=== PATIENT | female | born 1975 | race Caucasian/White ===

== ENCOUNTER → 2017-07-25 | Outpatient (CLI) | payer OTHER ==
[~2017-07-25] MED LIST: ALPR1TAB3 PO; AZEL0.15 NAE; CETI10TA84 PO; CLR10 PO; COCO1OIL2 PO; DULO-24 PO; GABA-113 PO; HYDR-3763 PO; HYDR12.56 PO; LANS30CA12 PO; METH500T37 PO; ONDA4TAB46 PO; OXYC-57 PO; PREG1CAP28 PO; ROPI0.5T15 PO; SERT100T PO; SIMV10TA2 PO; SNQ/25 PO; VNTHFA/IN INH; XNX5 PO; ZNF4 PO; ZOLP10TA PO
--- NOTE | 2017-07-25 15:16 | DIAGNOSTIC IMAGING REPORT ---
CT SCAN OF THE CERVICAL SPINE CLINICAL HISTORY: Neck pain. Upper extremity numbness. COMPARISON STUDY: MRI of the cervical spine dated 06/16/2016. TECHNIQUE: CT scan of the cervical spine is performed from the skull base to the upper thoracic spine. Images are reviewed in the axial, sagittal, and coronal planes. IV contrast was not administered for this examination. A dose lowering technique was utilized adhering to the principles of ALARA. CT DOSE: 272.86 mGy.cm FINDINGS: Skeletal structures: The skeletal structures are well mineralized. There is no evidence of fracture or subluxation involving the cervical spine. Vertebral body height and alignment are maintained. There are postoperative changes from anterior fusion seen at C5-C6. There is near complete bony incorporation. The orthopedic hardware appears intact. There is straightening of the cervical lordosis. The odontoid process and lateral masses are intact. The atlantoaxial articulation is preserved noting mild productive degenerative change. The spinous processes appear intact. No significant neural foraminal stenosis is identified throughout the cervical spine. Intervertebral discs: There has been discectomy at C5-C6. Minimal disc space narrowing is seen at C6-C7. Central canal: Grossly patent. Soft tissues: The prevertebral and paraspinous soft tissues are within normal limits. Calvarium: The visualized calvarium at the skull base appears intact. Brain parenchyma: Partially visualized brain parenchyma the skull base is within normal limits. Sinuses and mastoids: The visualized paranasal sinuses are clear. The mastoid air cells are well pneumatized. Lung apices: Clear as visualized. IMPRESSION: 1. There is no evidence of fracture or subluxation involving the cervical spine. 2. There is postoperative change from anterior fusion at C5-C6. The orthopedic hardware appears intact. 3. There is no CT evidence of large disc herniation, central canal stenosis, or significant neural foraminal narrowing throughout the cervical spine. Electronically signed by: Gabe Herbert M.D. 07/25/2017 3:14 PM Dictated Date/Time: 07/25/2017 3:11 PM
== END | disposition home or self-care (01) ==
LOC: C.CTS 14:57
PROVIDERS: ATTEND Physician Assistant
DX: M54.2 Cervicalgia (principal); Z98.1 Arthrodesis status

== ENCOUNTER 2017-07-31 05:32 | Day surgery (SDC) | payer OTHER ==
[2017-07-26 10:10] VITALS: BMI 40.0
[~2017-07-31] VITALS: Ht 149.9 cm; Wt 88.6 kg
[~2017-07-31 05:32] MED LIST changes: -ALPR1TAB3 PO; -CETI10TA84 PO; -COCO1OIL2 PO; -DULO-24 PO; -GABA-113 PO; -HYDR-3763 PO; -OXYC-57 PO; -ROPI0.5T15 PO; -ZOLP10TA PO
[2017-07-31 05:55] VITALS: BP 142/64; PULSE 91; TEMP 36.7; O2SAT 97; Ht 149.9 cm; Wt 88.6 kg
[2017-07-31] MEDS ORDERED: LACTATED RINGER'S 1000ML 1,000 ML IV SCH (06:00)
[2017-07-31] MEDS ORDERED: CEFAZOLIN 2000MG IV PUSH 10 ML IV SCH (06:00)
[2017-07-31] MEDS ORDERED: LIDOCAINE HCL 1% 20 ML VIAL ONE (06:37)
[2017-07-31] MEDS ORDERED: BUPIVACAINE 0.5 % 5 MG/1 ML MPF 30ML VIAL ONE (06:37)
[2017-07-31] MEDS ORDERED: BACITRACIN OINT 15 GM TUBE ONE (06:37)
[2017-07-31] MEDS ORDERED: EpHEDrine SULFATE INJ 50 MG/ML AMP IV PRN (06:45)
[2017-07-31] MEDS ORDERED: LABETALOL HCL IV 5 MG/ML 20ML IV PRN (06:45)
[2017-07-31] MEDS ORDERED: ATROPINE SULFATE 0.1 MG/ML 5ML SYR IV PRN (06:45)
[2017-07-31] MEDS ORDERED: METOCLOPRAMIDE HCL INJ 5 MG/ML 2 ML VIAL IV PRN (06:45)
[2017-07-31] MEDS ORDERED: ONDANSETRON INJ 2 MG/ML 2 ML VIAL IV PRN ×2 (06:45→09:45)
[2017-07-31] MEDS ORDERED: HYDROmorphone INJ 1 MG/ML SYR IV PRN (06:45)
[2017-07-31] MEDS ORDERED: PROMETHAZINE HCL INJ 12.5 MG in SODIUM CHLORIDE 0.9% 50ML 50 ML IV PRN (06:45)
[2017-07-31] MEDS ORDERED: PHENYLEPHRINE 100MCG/ML 5ML SYR IV PRN (06:45)
[2017-07-31] MEDS ORDERED: PROPOFOL IV EMULSION 10 MG/ML 20 ML VIAL IV ONE ×2 (06:50→07:36)
[2017-07-31] MEDS ORDERED: FENTANYL CITRATE INJ 50 MCG/1 ML 2 ML VIAL ONE (06:50)
[2017-07-31] MEDS ORDERED: LIDOCAINE HCL 2% 2 ML VIAL (20MG/ML) ONE (06:50)
[2017-07-31] MEDS ORDERED: MIDAZOLAM HCL 1 MG/ML 2ML VIAL ONE (06:50)
[2017-07-31] MEDS ORDERED: SCOPOLAMINE 1.5 MG TDSY TD SCH (07:00)
--- NOTE | 2017-07-31 07:00 | History & Physical Bridge Note ---
H&P Re-Evaluation Bridge Note: I have examined the patient, reviewed the History & Physical and in the interval since the performance of the History & Physical I have noted the following changes of clinical significance: No changes noted
[2017-07-31] MEDS ORDERED: ROCURONIUM BROMIDE 10 MG/ML 5 ML VIAL IV ONE (07:26)
[2017-07-31] MEDS ORDERED: ONDANSETRON INJ 2 MG/ML 2 ML VIAL ONE (07:26)
[2017-07-31] MEDS ORDERED: PROMETHAZINE HCL INJ 12.5 MG in SODIUM CHLORIDE 0.9% 50ML 50 ML IV ONE (07:30)
[2017-07-31] MEDS ORDERED: GLYCOPYRROLATE INJ 0.2 MG/ML VIAL ONE (07:34)
[2017-07-31] MEDS ORDERED: KETOROLAC TROMETHAMINE 30 MG/ML VIAL ONE (07:34)
[2017-07-31] MEDS ORDERED: NEOSTIGMINE METHYLSULFATE 5 MG/5 ML SYR ONE (07:34)
--- NOTE | 2017-07-31 07:47 | [facility] Post Operative Brief Note ---
Immediate Operative Summary Operative Date Jul 31, 2017. Pre-Operative Diagnosis Umbilical Hernia Post-Operative Diagnosis same as pre-operative Procedure(s) Performed Open Umbilical Hernia Repair( primary) Surgeon Dr. 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 size 0.8x0.6cm Fluids (cc crystalloids) 500ml Specimens none Drains none Anesthesia general Complication(s) None Disposition Recovery Room / PACU
[2017-07-31] MEDS ORDERED: OXYC-57 PO (07:49)
--- NOTE | 2017-07-31 07:52 | Discharge Instructions ---
Discharge Instructions Date of Service Jul 31, 2017. Visit Reason for Visit: Umbilical Hernia Discharge Discharge Diagnosis / Problem: S/P open repair umbilical hernia Discharge Goals Goal(s): Decrease discomfort, Improve function Activity Recommendations Activity Limitations: per Instructions/Follow-up section Lifting Limitations: no more than 25 pounds Exercise/Sports Limitations: rest today May Resume Sexual Activity: when tolerated, after two weeks Shower/Bathe: may shower/bathe in 3 days Driving or Machine Use: resume 3 days after discharge Anesthesia . Post Anesthesia Instructions: If you have had General Anesthesia or IV Sedation: * Do not drive today. * Resume driving when surgeon permits. * Do not make important decisions or sign legal documents today. * Call surgeon for: 1. Temperature elevations greater than 101 degrees F. 2. Uncontrollable pain. 3. Excessive bleeding. 4. Persistent nausea and vomiting. 5. Medication intolerance (nausea, vomiting or rash). * For nausea and vomiting use only clear liquids such as: tea, soda, bouillon until nausea subsides, then gradually increase diet as tolerated. * If you have any concerns or questions, call your surgeon's office. If physician is unavailable and it is an emergency, call 911 or go to the nearest emergency room. . Instructions / Follow-Up Instructions / Follow-Up keep the dressing on for 4 days, she can take a shower on 08/04/2017, no driving while taking pain medicine, follow up Dr. Workman 1 week. Diet Recommendations Recommended Home Diet: resume previous diet Procedures Procedures Performed: Open Umbilical Hernia Repair( primary) Pending Studies Studies pending at discharge: no Medical Emergencies . Who to Call and When: Medical Emergencies: If at any time you feel your situation is an emergency, please call 911 immediately. . Non-Emergent Contact Non-Emergency issues call your: Surgeon Call Non-Emergent contact if: you have a fever, temperature is above 100.5, your pain is not controlled, your pain is worsening, wound has increased drainage, wound has increased redness . . "Provider Documentation" section prepared by Opal Workman. . [place] Drug Monitoring Program Search Results: no issues identified
[2017-07-31] MEDS ORDERED: CHECK SCOPOLAMINE PATCH PLACEMENT SCH (08:00)
[2017-07-31] MEDS: FENTANYL CITRATE INJ 50 MCG/1 ML 2 ML VIAL IV PRN ×4 (08:12→08:31)
[2017-07-31] MEDS ORDERED: ALBUTEROL HFA INHALER 8.5 GM INH ONE (08:46)
--- NOTE | 2017-07-31 09:07 | Anesthesiology Progress Note ---
Anesthesia Post Op Note Date & Time Jul 31, 2017 at 09:07 Vital Signs Pain Intensity: 6 Vital Signs Past 12 Hours Date Time Temp Pulse Resp B/P (MAP) Pulse Ox O2 Delivery O2 Flow Rate FiO2 07/31/17 09:03 66 19 90 07/31/17 09:03 66 19 07/31/17 09:01 99/54 07/31/17 08:59 36.2 65 16 99/54 (71) 94 Room Air 07/31/17 08:58 70 17 07/31/17 08:58 72 17 94 07/31/17 08:57 69 14 07/31/17 08:57 70 14 91 07/31/17 08:56 101/49 07/31/17 08:52 67 15 07/31/17 08:52 65 15 93 07/31/17 08:51 95/51 07/31/17 08:47 61 18 07/31/17 08:47 61 18 96 07/31/17 08:46 103/65 07/31/17 08:42 74 23 88 07/31/17 08:42 76 23 07/31/17 08:41 101/62 07/31/17 08:37 71 10 07/31/17 08:37 75 10 94 07/31/17 08:36 103/63 07/31/17 08:32 64 14 125/67 94 07/31/17 08:32 67 14 07/31/17 08:27 83 14 93 07/31/17 08:27 82 14 07/31/17 08:26 87/67 07/31/17 08:22 72 14 07/31/17 08:22 74 14 95 07/31/17 08:21 120/74 07/31/17 08:17 70 20 93 07/31/17 08:17 68 20 07/31/17 08:16 101/70 07/31/17 08:12 82 25 94 07/31/17 08:12 80 25 07/31/17 08:11 136/65 07/31/17 08:07 78 17 98 07/31/17 08:07 79 17 07/31/17 08:06 142/75 07/31/17 08:03 145/60 07/31/17 08:02 36.0 87 16 145/60 (93) 94 Oxymask 10 07/31/17 08:02 97 19 99 07/31/17 08:02 98 19 07/31/17 05:55 36.7 91 20 142/64 (90) 97 Room Air Notes Mental Status: alert / awake / arousable, participated in evaluation Pt Amnestic to Procedure: Yes Nausea / Vomiting: adequately controlled Pain: adequately controlled Airway Patency, RR, SpO2: stable & adequate BP & HR: stable & adequate Hydration State: stable & adequate Anesthetic Complications: no major complications apparent
[2017-07-31 09:15] VITALS: BP 97/51; PULSE 74; TEMP 36.6; O2SAT 98
[2017-07-31] MEDS ORDERED: SODIUM CHLORIDE 0.9% 1000ML 1,000 ML IV SCH (09:34)
[2017-07-31] MEDS ORDERED: OXYCODONE/ACETAMINOPHEN 5-325 TAB ONE (09:44)
[2017-07-31 09:45] VITALS: BP 104/65; PULSE 81; O2SAT 95
[2017-07-31] MEDS ORDERED: OXYCODONE/ACETAMINOPHEN 5-325 TAB PO PRN (09:45)
[2017-07-31] MEDS ORDERED: MoRPHine SULFATE 2 MG/ML CARP IV PRN (09:45)
[2017-07-31 10:15] VITALS: BP 94/58; PULSE 81; TEMP 36.6; O2SAT 96
--- NOTE | 2017-07-31 10:25 | OPERATIVE REPORT ---
DATE OF OPERATION: 07/31/2017 PREOPERATIVE DIAGNOSIS: Umbilical hernia. POSTOPERATIVE DIAGNOSIS: Same. PROCEDURE: Open repair of umbilical hernia primary repair. SURGEON: Opal Workman MD ANESTHESIA: General. ESTIMATED BLOOD LOSS: About 10 mL. FINDINGS: Umbilical hernia size about 0.8 x 0.6 cm. COMPLICATIONS: None. INDICATIONS FOR THE PROCEDURE: This is a 41-year-old female who presented with symptomatic umbilical hernia and patient required to do open repair of umbilical hernia, possible mesh. I did talk to the patient about the benefit and risk, alternate procedure. I indicated the risks may include but not limited such as bleeding, infection, hernia recurrence, injury to bowel. The patient understands. She signed informed consent and I answered all questions. DETAILS OF PROCEDURE: We brought the patient to the OR and put the patient in the supine position. The patient received SCD on bilateral legs to prevent DVT. Also, the patient received 2 grams Ancef IV for prophylactic antibiotic. The patient received general anesthesia without difficulty. The abdomen was prepped and draped in routine sterile fashion. After a timeout, I injected local anesthesia by using 1% lidocaine mixed with 0.5% Marcaine around the umbilical area. Then I made a small incision just below the umbilical and mobilized the umbilical and found the patient had 0.3 x 0.6 cm umbilical hernia, so we chose a primary repair using #1 Ethibond suture closed the umbilical hernia. Then we used 2-0 Vicryl and put the umbilicus back to original location. Using 2-0 Vicryl to close subcutaneous layer, interrupted. We closed skin by using 4-0 Vicryl. Then we put the dressing on. The patient tolerated the procedure well. All the instrument, needle and sponge count correct x2 at the end of case and the patient transferred to recovery room in stable condition. After the procedure, I did talk to the patient about the OR procedure we did and OR finding patient understand. Also gave the patient postoperative care instructions. I attest to the content of the Intraoperative Record and any orders documented therein. Any exceptions are noted below. MTDD
[2017-08-01] MEDS ORDERED: CEFAZOLIN SOD 2000MG/10 ML IV PUSH IV ONE (06:00)
== END 2017-07-31 10:45 | disposition home or self-care (01) ==
LOC: C.ACU 05:32
PROVIDERS: ATTEND Surgery
DX: K42.9 Umbilical hernia without obstruction or gangrene (principal); F17.200 Nicotine dependence, unspecified, uncomplicated; K21.0 Gastro-esophageal reflux disease with esophagitis; G47.00 Insomnia, unspecified; E55.9 Vitamin D deficiency, unspecified; G47.33 Obstructive sleep apnea (adult) (pediatric); M47.812 Spondylosis without myelopathy or radiculopathy, cervical region; G25.81 Restless legs syndrome; F32.9 Major depressive disorder, single episode, unspecified; F41.9 Anxiety disorder, unspecified; Z79.899 Other long term (current) drug therapy

== ENCOUNTER → 2017-08-14 | Outpatient (CLI) | payer OTHER ==
[~2017-08-14] MED LIST changes: -AZEL0.15 NAE
--- NOTE | 2017-08-14 17:03 | DIAGNOSTIC IMAGING REPORT ---
MRI OF THE LUMBAR SPINE WITHOUT CONTRAST CLINICAL HISTORY: Lumbar spine pain. Bilateral leg numbness. COMPARISON STUDY: No previous studies for comparison. TECHNIQUE: Utilizing a 1.5 Corinne magnet and dedicated coil, multiplanar, multiecho imaging of the lumbar spine was performed without IV contrast. FINDINGS: For purposes of numbering on this exam, the L5-S1 disc space is assigned to axial image 27 of 30. Alignment of the lumbar spine is anatomic. Vertebral body heights are maintained. There is no marrow replacement. Discogenic changes are noted along the superior endplate of T10. There is no intracanalicular mass or fluid collection. Conus terminates at the lower L1 level. Paravertebral soft tissues are unremarkable. L1-2: The central canal and neural foramen are patent. L2-3: The central canal and neural foramen are patent. L3-4: The central canal and neural foramen are patent. L4-5: There is a tiny left foraminal disc protrusion which contacts the exiting left L4 nerve root. Central canal and neural foramen are patent. There is mild facet arthrosis. L5-S1: Central canal and neural foramen are patent. IMPRESSION: 1. Minimal degenerative disc disease and facet arthrosis at L4-L5. Tiny left foraminal disc protrusion which contacts the exiting L4 nerve root. 2. Otherwise, patent central canal and neural foramen within the lumbar spine. Electronically signed by: Naman Wright M.D. 08/14/2017 5:02 PM Dictated Date/Time: 08/14/2017 4:56 PM
== END | disposition home or self-care (01) ==
LOC: C.MRI 16:16
PROVIDERS: ATTEND Orthopaedic Surgery Orthopaedic Surgery of the Spine
DX: M54.5 Low back pain (principal)

== ENCOUNTER 2017-10-22 14:47 | Emergency (ER) | payer OTHER ==
[~2017-10-22] VITALS: Ht 147.3 cm; Wt 90.9 kg
[~2017-10-22 14:47] MED LIST changes: -VNTHFA/IN INH
[2017-10-22 14:53] VITALS: TEMP 37; Ht 147.3 cm; Wt 90.9 kg
[2017-10-22] MEDS ORDERED: ONDANSETRON INJ 2 MG/ML 2 ML VIAL IV STA (15:06)
[2017-10-22] MEDS ORDERED: FENTANYL CITRATE INJ 50 MCG/1 ML 2 ML VIAL IV STA (15:06)
[2017-10-22] MEDS ORDERED: SODIUM CHLORIDE 0.9% 1000ML 2,000 ML IV STA (15:06)
--- NOTE | 2017-10-22 15:14 | EMERGENCY ROOM VISIT NOTE ---
History Report prepared by Thi: Brenda Sidhu Under the Supervision of: Dr. Jaden Alejandra M.D. First contact with patient: 14:59 Chief Complaint: ABDOMINAL PAIN Stated Complaint: PAIN IN RT STOMACH, DIZZY, NAUSEA, VOMITTING History of Present Illness The patient is a 41 year old female who presents to the Emergency Room with complaints of persistent abdominal pain that started 3 days ago. The patient rates her pain a 9/10 in severity. The patients notes the pain on Monday was dull but yesterday the pain was very sharp. She states she went to the ED in [place] and they did a CT without contrast. The administered pain medications. The patient notes she still has her gallbladder. She had a hysterectomy in September and she states she has been having trouble urinating since the surgery. The patient reports she is experiencing, diarrhea, vomiting, chills, back pain, and dizziness. She denies any fever. She notes she has not eaten anything recently and has drank a very minimal amount of liquids. Source of History: patient Onset: 3 days ago Position: abdomen Symptom Intensity: 9/10 Quality: sharp Timing: other (persistent) Associated Symptoms: + chills, + vomiting, + back pain, + diarrhea, No fevers Review of Systems See HPI for pertinent positives and negatives. A total of ten systems were reviewed and were otherwise negative. Past Medical & Surgical Medical Problems: (1) Cervical disc disease Family History Cancer Diabetes mellitus Social History Smoking Status: Current Every Day Smoker Marital Status: single Occupation Status: unemployed Current/Historical Medications Scheduled Alprazolam (Alprazolam), 0.5 MG PO prn ud Carbamazepine (Tegretol), 1 TAB PO AMPM Ciprofloxacin Hcl (Cipro), 500 MG PO BID Diazepam (Valium), 2 MG PO BID Doxepin (Sinequan), 50 MG PO HS Hydrochlorothiazide (Hctz), 12.5 MG PO HS Lansoprazole (Prevacid), 30 MG PO QAM Loratadine (Claritin), 10 MG PO HS Methocarbamol (Robaxin), 500 MG PO DAILY Metronidazole (Flagyl), 500 MG PO TID Ondasetron Odt (Zofran Odt), 4 MG SL Q6H Saccharomyces Boulardii (Florastor), 1 CAP PO BID Sertraline Hcl (Zoloft), 200 MG PO HS Simvastatin (Zocor), 10 MG PO QPM Scheduled PRN Albuterol Hfa (Ventolin Hfa), 2 PUFFS INH Q4 PRN for SOB/Wheezing Ibuprofen Tab (Motrin), 800 MG PO Q8H PRN for Pain Allergies Coded Allergies: Bupropion (Verified Allergy, Unknown, HIVES, 07/31/17) Escitalopram (Verified Allergy, Unknown, HIVES, 07/31/17) Topiramate (Verified Allergy, Unknown, INDUCED GLAUCOMA, 07/31/17) Corticosteroids (Verified Adverse Reaction, Severe, GLACOMA, 10/22/17) Clarithromycin (Verified Adverse Reaction, Unknown, GI UPSET, 07/31/17) Uncoded Allergies: STEROID INJECTIONS (Adverse Reaction, Unknown, PT WAS TOLD NO STEROID INJECTIONS S/T GLAUCOMA, 07/04/16) Physical Exam Vital Signs Date Time Temp Pulse Resp B/P (MAP) Pulse Ox O2 Delivery O2 Flow Rate FiO2 10/22/17 18:05 90 18 111/73 95 10/22/17 16:56 96 18 121/50 96 Room Air 10/22/17 15:38 92 10/22/17 15:33 94 20 105/64 95 Room Air 10/22/17 14:53 37.0 113 28 125/70 97 Room Air Physical Exam GENERAL: Awake, alert, uncomfortable appearing, in no distress HENT: Normocephalic, atraumatic. Oropharynx unremarkable. Dry mucus membranes. EYES: Normal conjunctiva. Sclera non-icteric. NECK: Supple. No nuchal rigidity. FROM. No JVD. RESPIRATORY: Clear to auscultation. CARDIAC: Regular rate, normal rhythm. Extremities warm and well perfused. Pulses equal. ABDOMEN: Generalized abdominal pain, mostly in RLQ. No peritoneal signs. RECTAL: Deferred. MUSCULOSKELETAL: Chest examination reveals no tenderness. The back is symmetrical on inspection without obvious abnormality. There is no CVA tenderness to palpation. No joint edema. LOWER EXTREMITIES: Calves are equal size bilaterally and non-tender. No edema. No discoloration. NEURO: Normal sensorium. No sensory or motor deficits noted. SKIN: No rash or jaundice noted. Medical Decision & Procedures ER Provider Diagnostic Interpretation: Radiology results as stated below per my review and radiologist interpretation: ABDOMEN AND PELVIS CT WITH IV CONTRAST CT DOSE: 1183.83 mGy.cm HISTORY: Right-sided abdominal pain. TECHNIQUE: Multiaxial CT images of the abdomen and pelvis were performed following the use of intravenous contrast. A dose lowering technique was utilized adhering to the principles of ALARA. COMPARISON STUDY: None. FINDINGS: The lung bases are clear. No pneumoperitoneum. No pneumatosis. No fractures within the visualized osseous structures. A 4 mm hypodense lesion within the right hepatic lobe. This is too small to characterize. The gallbladder, spleen, adrenal glands, pancreas, and kidneys are unremarkable. No retroperitoneal lymphadenopathy. Hysterectomy. Normal bladder. Normal appendix. Within the right anterior abdomen on image 249 there is a 1.8 cm focal area of fat with surrounding inflammatory change adjacent to the proximal transverse colon. This likely represents epiploic appendagitis. No inflamed diverticula to suggest diverticulitis at this location. IMPRESSION: 1. A focal area of fat with surrounding inflammatory change within the right anterior abdomen adjacent to the proximal transverse colon consistent with epiploic appendagitis. An acute diverticulitis could also have a similar appearance, however, there are no inflamed diverticula identified at this location. However, if the patient symptoms continue to progress then consider repeat CT scanning for confirmation. 2. Normal appendix. 3. No bowel wall thickening or obstruction. Electronically signed by: Rene Henriquez M.D. 10/22/2017 4:43 PM Dictated Date/Time: 10/22/2017 4:35 PM Laboratory Results 10/22/17 15:30 Red Blood Count 4.13, Mean Corpuscular Volume 84.3, Mean Corpuscular Hemoglobin 29.1, Mean Corpuscular Hemoglobin Concent 34.5, Mean Platelet Volume 9.7, Neutrophils (%) (Auto) 70.9, Lymphocytes (%) (Auto) 22.1, Monocytes (%) (Auto) 6.1, Eosinophils (%) (Auto) 0.7, Basophils (%) (Auto) 0.1, Neutrophils # (Auto) 5.90, Lymphocytes # (Auto) 1.84, Monocytes # (Auto) 0.51, Eosinophils # (Auto) 0.06, Basophils # (Auto) 0.01 10/22/17 15:30 Test 10/22/17 14:40 10/22/17 15:30 Urine Color YELLOW Urine Appearance CLEAR (CLEAR) Urine pH 6.0 (4.5-7.5) Urine Specific [place] 1.032 (1.000-1.030) Urine Protein NEG (NEG) Urine Glucose (UA) 1+ (NEG) Urine Ketones NEG (NEG) Urine Occult Blood NEG (NEG) Urine Nitrite NEG (NEG) Urine Bilirubin NEG (NEG) Urine Urobilinogen NEG (NEG) Urine Leukocyte Esterase TRACE (NEG) Urine WBC (Auto) 5-10 /hpf (0-5) Urine RBC (Auto) 0-4 /hpf (0-4) Urine Hyaline Casts (Auto) 0 /lpf (0-5) Urine Epithelial Cells (Auto) >30 /lpf (0-5) Urine Bacteria (Auto) 1+ (NEG) White Blood Count 8.33 K/uL (4.8-10.8) Red Blood Count 4.13 M/uL (4.2-5.4) Hemoglobin 12.0 g/dL (12.0-16.0) Hematocrit 34.8 % (37-47) Mean Corpuscular Volume 84.3 fL (80-100) Mean Corpuscular Hemoglobin 29.1 pg (25-34) Mean Corpuscular Hemoglobin Concent 34.5 g/dl (32-36) Platelet Count 190 K/uL (130-400) Mean Platelet Volume 9.7 fL (7.4-10.4) Neutrophils (%) (Auto) 70.9 % Lymphocytes (%) (Auto) 22.1 % Monocytes (%) (Auto) 6.1 % Eosinophils (%) (Auto) 0.7 % Basophils (%) (Auto) 0.1 % Neutrophils # (Auto) 5.90 K/uL (1.4-6.5) Lymphocytes # (Auto) 1.84 K/uL (1.2-3.4) Monocytes # (Auto) 0.51 K/uL (0.11-0.59) Eosinophils # (Auto) 0.06 K/uL (0-0.5) Basophils # (Auto) 0.01 K/uL (0-0.2) RDW Standard Deviation 43.3 fL (36.4-46.3) RDW Coefficient of Variation 14.1 % (11.5-14.5) Immature Granulocyte % (Auto) 0.1 % Immature Granulocyte # (Auto) 0.01 K/uL (0.00-0.02) Erythrocyte Sedimentation Rate 45 mm/hr (0-21) Anion Gap 8.0 mmol/L (3-11) Est Creatinine Clear Calc Drug Dose 127.4 ml/min Estimated GFR () 135.3 Estimated GFR (Non- 116.8 BUN/Creatinine Ratio 11.6 (10-20) Lactic Acid Level 1.4 mmol/L (0.4-2.0) Calcium Level 8.1 mg/dl (8.5-10.1) Total Bilirubin 0.3 mg/dl (0.2-1) Direct Bilirubin 0.1 mg/dl (0-0.2) Aspartate Amino Transf (AST/SGOT) 12 U/L (15-37) Alanine Aminotransferase (ALT/SGPT) 14 U/L (12-78) Alkaline Phosphatase 104 U/L (45-117) C-Reactive Protein 6.39 mg/dl (0-0.29) Total Protein 6.8 gm/dl (6.4-8.2) Albumin 3.3 gm/dl (3.4-5.0) Lipase 216 U/L (73-393) Date/Time Source Procedure Growth Status 10/22/17 14:40 Urine , Clean Catch Urine Culture - Final Gardnerella-Like Bacilli Complete Laboratory results reviewed by me Medications Administered Medications (Trade) Dose Ordered Sig/Thai Route Start Time Stop Time Status Last Admin Dose Admin Sodium Chloride 2,000 ml @ 999 mls/hr Q2H1M STAT IV 10/22/17 15:06 10/22/17 17:06 DC 10/22/17 15:31 999 MLS/HR Fentanyl Citrate (Fentanyl Inj) 50 mcg NOW STAT IV 10/22/17 15:06 10/22/17 15:15 DC 10/22/17 15:32 50 MCG Ondansetron HCl (Zofran Inj) 4 mg NOW STAT IV 10/22/17 15:06 10/22/17 15:15 DC 10/22/17 15:30 4 MG Ketorolac Tromethamine (Toradol Inj) 15 mg NOW STAT IV 10/22/17 17:04 10/22/17 17:06 DC 10/22/17 17:11 15 MG Ciprofloxacin (Cipro Tab) 500 mg NOW STAT PO 10/22/17 17:43 10/22/17 17:44 DC 10/22/17 18:03 500 MG Metronidazole (Flagyl Tab) 500 mg NOW STAT PO 10/22/17 17:43 10/22/17 17:44 DC 10/22/17 18:03 500 MG ED Course 1459: The patient was evaluated in room C9. A complete history and physical exam was performed. 1505: Bedside ultrasound performed. No gallstones or pericholecystic fluid. 1715: I reevaluated the patient and she is feeling better. Discussed results and discharge instructions: She verbalized understanding and agreement. The patient is ready for discharge. Medical Decision I reviewed the patient's past medical history, medications, and the nursing notes as described above. Differential diagnosis: Etiologies such as appendicitis, diverticulitis, PUD, biliary pathology, UTI, pancreatitis, obstruction, mesenteric ischemia, aortic pathology, infections, inflammatory bowel disease, renal colic, as well as others were entertained. The patient is a 41 y/o woman who presents to the emergency department with generalized abdominal pain after being seen yesterday at [place] ED for the same per HPI. Of note, CT report obtained and CT without contrast was unremarkable. On arrival, the patient is in NAD, AFVSS. Generalized abdominal ttp without peritoneal signs. WBC and lactate wnl. ESR [address] abd/pel with contrast demonstrates epiploic appendagitis with ?stranding of transverse colon that could be c/w early diverticulitis. Patient feeling improved after IVF. Findings d/w the patient and that treat for appendagitis is supportive with NSAIDS and time however we could treat her for possible early diverticulitis. Patient preferring to treat. Denies any urinary sx and UA is dirty however ABX course will also over UTI. Findings and plan for follow-up reviewed with patient. Patient agreeable and d/c'd per discharge instructions. Medication Reconcilliation Current Medication List: was personally reviewed by me Impression Primary Impression: Epiploic appendagitis Additional Impressions: Diverticulitis Urinary tract infection Scribe Attestation The scribe's documentation has been prepared under my direction and personally reviewed by me in its entirety. I confirm that the note above accurately reflects all work, treatment, procedures, and medical decision making performed by me. Departure Information Dispostion Home / Self-Care Prescriptions Ondasetron Odt (ZOFRAN ODT) 4 Mg Tab 4 MG SL Q6H for Nausea, #10 TAB Prov: Jaden Alejandra M.D. 10/22/17 Ibuprofen Tab (MOTRIN) 800 Mg Tab 800 MG PO Q8H Y for Pain, #21 TAB Prov: Jaden Alejandra M.D. 10/22/17 Saccharomyces Boulardii (Florastor) 250 Mg Cap 1 CAP PO BID for 14 Days, #28 CAP Prov: Jaden Alejandra M.D. 10/22/17 Metronidazole (Flagyl) 500 Mg Tab 500 MG PO TID for 14 Days, #42 TAB Prov: Jaden Alejandra M.D. 10/22/17 Ciprofloxacin Hcl (CIPRO) 500 Mg Tab 500 MG PO BID, #28 TAB Prov: Jaden Alejandra M.D. 10/22/17 Referrals No Doctor, Assigned (PCP) Patient Instructions ED Diverticulitis, ED UTI Cystitis Female, My [facility] Additional Instructions Please follow up with your primary care physician in the next 1-3 days for re- evaluation. You were found to have epiploic appendicitis as well as possible early diverticulitis. Otherwise, your exam, lab results, and CT scan did not show signs of an emergent condition at this time. Acetaminophen or ibuprofen for pain and fevers as needed. Ciprofloxacin and metronidazole as directed. Florastor, probiotic, to help prevent antibiotic associated diarrhea. Zofran as needed for nausea. Drink plenty of fluids to ensure hydration. Return to the emergency department for worsening symptoms as described in the accompanying instructions. Problem Qualifiers
[2017-10-22] MEDS ORDERED: OPTIRAY 320 IV PRN (15:30)
[2017-10-22 15:42] LABS: BASO % 0.1 %; BASO ABS # 0.01 K/uL (0-0.2); EOS % 0.7 %; EOS ABS # 0.06 K/uL (0-0.5); HEMATOCRIT 34.8 % (37-47); IG# 0.01 K/uL (0.00-0.02); LYMPH % 22.1 %; LYMPH ABS # 1.84 K/uL (1.2-3.4); MEAN CELL VOLUME 84.3 fL (80-100); MEAN CORPUSCULAR HEMOGLOBIN 29.1 pg (25-34); MEAN CORPUSCULAR HGB CONC 34.5 g/dl (32-36); MEAN PLATELET VOLUME 9.7 fL (7.4-10.4); MONO % 6.1 %; MONO ABS # 0.51 K/uL (0.11-0.59); NEUT % 70.9 %; PLATELET COUNT 190 K/uL (130-400); RED CELL DISTRIBUTION WIDTH CV 14.1 % (11.5-14.5); RED CELL DISTRIBUTION WIDTH SD 43.3 fL (36.4-46.3); WHITE BLOOD COUNT 8.33 K/uL (4.8-10.8)
[2017-10-22 16:02] LABS: ALBUMIN 3.3 gm/dl (3.4-5.0); CALCIUM 8.1 mg/dl (8.5-10.1); CREATININE 0.57 mg/dl (0.60-1.20); POTASSIUM 3.7 mmol/L (3.5-5.1)
[2017-10-22] MEDS ORDERED: DIAZ2TAB PO (16:02)
[2017-10-22] MEDS ORDERED: CARB200T PO (16:02)
[2017-10-22 16:05] LABS: TOTAL PROTEIN 6.8 gm/dl (6.4-8.2)
--- NOTE | 2017-10-22 16:44 | DIAGNOSTIC IMAGING REPORT ---
ABDOMEN AND PELVIS CT WITH IV CONTRAST CT DOSE: 1183.83 mGy.cm HISTORY: Right-sided abdominal pain. TECHNIQUE: Multiaxial CT images of the abdomen and pelvis were performed following the use of intravenous contrast. A dose lowering technique was utilized adhering to the principles of ALARA. COMPARISON STUDY: None. FINDINGS: The lung bases are clear. No pneumoperitoneum. No pneumatosis. No fractures within the visualized osseous structures. A 4 mm hypodense lesion within the right hepatic lobe. This is too small to characterize. The gallbladder, spleen, adrenal glands, pancreas, and kidneys are unremarkable. No retroperitoneal lymphadenopathy. Hysterectomy. Normal bladder. Normal appendix. Within the right anterior abdomen on image 249 there is a 1.8 cm focal area of fat with surrounding inflammatory change adjacent to the proximal transverse colon. This likely represents epiploic appendagitis. No inflamed diverticula to suggest diverticulitis at this location. IMPRESSION: 1. A focal area of fat with surrounding inflammatory change within the right anterior abdomen adjacent to the proximal transverse colon consistent with epiploic appendagitis. An acute diverticulitis could also have a similar appearance, however, there are no inflamed diverticula identified at this location. However, if the patient symptoms continue to progress then consider repeat CT scanning for confirmation. 2. Normal appendix. 3. No bowel wall thickening or obstruction. Electronically signed by: Rene Henriquez M.D. 10/22/2017 4:43 PM Dictated Date/Time: 10/22/2017 4:35 PM
[2017-10-22] MEDS ORDERED: KETOROLAC TROMETHAMINE 30 MG/ML VIAL IV STA (17:04)
[2017-10-22] MEDS ORDERED: VNTHFA/IN INH (17:40)
[2017-10-22] MEDS ORDERED: METRONIDAZOLE 250 MG TAB PO STA (17:43)
[2017-10-22] MEDS ORDERED: CIPROFLOXACIN 500 MG TAB PO STA (17:43)
[2017-10-22] MEDS ORDERED: CIPR-255 PO (17:47)
[2017-10-22] MEDS ORDERED: METR-163 PO (17:47)
[2017-10-22] MEDS ORDERED: SACC250C3 PO (17:47)
[2017-10-22] MEDS ORDERED: IBUP-1451 PO (17:50)
[2017-10-22] MEDS ORDERED: ONDA4TAB10 SL (17:50)
[2017-10-22 18:05] VITALS: BP 111/73; PULSE 90; O2SAT 95
== END 2017-10-22 18:14 | disposition home or self-care (01) ==
LOC: C.EDB 14:48 → C.EDC 18:14
DX: K63.89 Other specified diseases of intestine (principal); Q43.8 Other specified congenital malformations of intestine; K57.92 Diverticulitis of intestine, part unspecified, without perforation or abscess without bleeding; N39.0 Urinary tract infection, site not specified; Z90.710 Acquired absence of both cervix and uterus; Z83.3 Family history of diabetes mellitus; F17.200 Nicotine dependence, unspecified, uncomplicated; Z88.8 Allergy status to other drugs, medicaments and biological substances; Z88.1 Allergy status to other antibiotic agents

== ENCOUNTER 2017-10-25 09:48 | Emergency (ER) | payer OTHER ==
[~2017-10-25] VITALS: Ht 147.3 cm; Wt 90.4 kg
[~2017-10-25 09:48] MED LIST changes: +CARB200T PO; +CIPR-255 PO; +DIAZ2TAB PO; +IBUP-1451 PO; +METR-163 PO; +ONDA4TAB10 SL; -ONDA4TAB46 PO; -PREG1CAP28 PO; +SACC250C3 PO; +VNTHFA/IN INH; -ZNF4 PO
[2017-10-25 09:57] VITALS: TEMP 36.7; Ht 147.3 cm; Wt 90.4 kg
[2017-10-25] MEDS ORDERED: ONDANSETRON INJ 2 MG/ML 2 ML VIAL IV STA (10:48)
[2017-10-25] MEDS ORDERED: MoRPHine SULFATE 10 MG/ML CARP/VIAL IV STA (10:48)
[2017-10-25] MEDS ORDERED: SODIUM CHLORIDE 0.9% 1000ML 1,000 ML IV STA (10:48)
[2017-10-25] MEDS ORDERED: OPTIRAY 320 IV PRN (11:00)
[2017-10-25 11:27] VITALS: O2SAT 97
[2017-10-25 11:40] LABS: BASO % 0.1 %; BASO ABS # 0.01 K/uL (0-0.2); EOS % 1.2 %; EOS ABS # 0.09 K/uL (0-0.5); HEMATOCRIT 36.4 % (37-47); HEMOGLOBIN 12.6 g/dL (12.0-16.0); IG# 0.02 K/uL (0.00-0.02); LYMPH % 23.5 %; LYMPH ABS # 1.82 K/uL (1.2-3.4); MEAN CELL VOLUME 84.1 fL (80-100); MEAN CORPUSCULAR HEMOGLOBIN 29.1 pg (25-34); MEAN CORPUSCULAR HGB CONC 34.6 g/dl (32-36); MEAN PLATELET VOLUME 10.2 fL (7.4-10.4); MONO % 4.9 %; MONO ABS # 0.38 K/uL (0.11-0.59); NEUT ABS # 5.42 K/uL (1.4-6.5); PLATELET COUNT 202 K/uL (130-400); RED CELL DISTRIBUTION WIDTH CV 14.2 % (11.5-14.5); RED CELL DISTRIBUTION WIDTH SD 43.8 fL (36.4-46.3); WHITE BLOOD COUNT 7.74 K/uL (4.8-10.8)
[2017-10-25 11:56] LABS: ALBUMIN 3.5 gm/dl (3.4-5.0); ALT/SGPT 12 U/L (12-78); BLOOD UREA NITROGEN 8 mg/dl (7-18); CARBON DIOXIDE 28 mmol/L (21-32); CREATININE 0.67 mg/dl (0.60-1.20); GLUCOSE 100 mg/dl (70-99); LIPASE 142 U/L (73-393); POTASSIUM 4.1 mmol/L (3.5-5.1); SODIUM 136 mmol/L (136-145)
[2017-10-25 11:59] LABS: ALKALINE PHOSPHATASE 94 U/L (45-117); AST/SGOT 13 U/L (15-37); TOTAL PROTEIN 7.5 gm/dl (6.4-8.2)
--- NOTE | 2017-10-25 13:38 | DIAGNOSTIC IMAGING REPORT ---
CT OF THE ABDOMEN AND PELVIS WITH CONTRAST CLINICAL HISTORY: Diffuse abdominal pain. COMPARISON STUDY: CT of the abdomen and pelvis October 22, 2017. TECHNIQUE: Following IV administration of 117 mL of Optiray-320, axial images of the abdomen and pelvis were obtained from the lung bases to the proximal femurs. Images were reviewed in the axial, sagittal, and coronal planes. IV contrast was administered without complication. A dose lowering technique was utilized adhering to the principles of ALARA. Oral contrast was administered. CT DOSE: 773.52 mGy.cm FINDINGS: There is suspected fatty infiltration of the liver. No hepatic lesions are present. There is no biliary or pancreatic ductal dilatation. There is no hydronephrosis. Borderline splenomegaly is noted. No pneumatosis, free air or portal venous gas is present. The appendix is normal. A nodular density anterior to the distal descending colon suggests subacute to chronic epiploic appendagitis. Note is made of mild infiltration within the omentum, along the inferior aspect of the proximal transverse colon which is similar to CT of October 22, 2017. This measures 2.1 cm in extent. There is mild mass effect. There is no abscess. There is no free air. No associated inflamed diverticulum is noted. No suspicious osseous lesions are present. There is no lymphadenopathy. IMPRESSION: No significant change in mild infiltration within the omentum, located along the inferior aspect the proximal transverse colon, since CT of October 22, 2017. No abscess. Epiploic appendagitis or a small omental infarct are favored. Acute diverticulitis is considered less likely. Electronically signed by: Naman Wright M.D. 10/25/2017 1:37 PM Dictated Date/Time: 10/25/2017 12:59 PM
[2017-10-25 14:08] VITALS: BP 130/76; PULSE 76; O2SAT 96
--- NOTE | 2017-10-25 16:40 | EMERGENCY ROOM VISIT NOTE ---
History Report prepared by Thi: Shreyas Lucas Under the Supervision of: Dr. Maxim Lozada D.O. First contact with patient: 10:22 Chief Complaint: ABDOMINAL PAIN Stated Complaint: STOMACH PAIN History of Present Illness The patient is a 41 year old female who presents to the Emergency Room with complaints of worsening right-sided sharp abdominal pain that began five days ago. She rates her pain a 9/10 in severity. She has a past medical history of a complete hysterectomy in September 2017 with associated chronic urinary burning. When her symptoms began, they started as a mild dull pain to her right side. The next day, it significantly worsened so she presented to [facility]. She received a negative CT scan and was discharged. The next day however, her symptoms worsened again so she presented to [facility]. She was diagnosed with epiploic appendagitis, UTI, and a possible diverticulitis. She was discharged on Cipro and Flagyl. Last night, the patient became nauseated and had three episodes of vomiting. She has not tried to eat today, but had three episodes of diarrhea with continued abdominal pain. She called her PCP who referred her to the ER for further workup and management. She still has her gallbladder and appendix. Pt denies headache, change in vision, fevers, chest pain, shortness of breath, and melena. Source of History: patient Onset: five days ago Position: abdomen (right sided) Symptom Intensity: 9/10 Quality: sharp Timing: worsening Associated Symptoms: + nausea, + vomiting, + diarrhea, No fevers, No headache, No chest pain, No SOB, No melena Review of Systems See HPI for pertinent positives & negatives. A total of 10 systems reviewed and were otherwise negative. Past Medical & Surgical Medical Problems: (1) Cervical disc disease Family History Cancer Diabetes mellitus Social History Smoking Status: Current Every Day Smoker Marital Status: single Occupation Status: unemployed Current/Historical Medications Scheduled Alprazolam (Alprazolam), 0.5 MG PO prn ud Carbamazepine (Tegretol), 1 TAB PO AMPM Ciprofloxacin Hcl (Cipro), 500 MG PO BID Diazepam (Valium), 2 MG PO BID Doxepin (Sinequan), 50 MG PO HS Hydrochlorothiazide (Hctz), 12.5 MG PO HS Lansoprazole (Prevacid), 30 MG PO QAM Loratadine (Claritin), 10 MG PO HS Methocarbamol (Robaxin), 500 MG PO DAILY Metronidazole (Flagyl), 500 MG PO TID Ondasetron Odt (Zofran Odt), 4 MG SL Q6H Saccharomyces Boulardii (Florastor), 1 CAP PO BID Sertraline Hcl (Zoloft), 200 MG PO HS Simvastatin (Zocor), 10 MG PO QPM Scheduled PRN Albuterol Hfa (Ventolin Hfa), 2 PUFFS INH Q4 PRN for SOB/Wheezing Ibuprofen Tab (Motrin), 800 MG PO Q8H PRN for Pain Allergies Coded Allergies: Bupropion (Verified Allergy, Unknown, HIVES, 10/25/17) Escitalopram (Verified Allergy, Unknown, HIVES, 10/25/17) Topiramate (Verified Allergy, Unknown, INDUCED GLAUCOMA, 10/25/17) Corticosteroids (Verified Adverse Reaction, Severe, GLACOMA, 10/25/17) Clarithromycin (Verified Adverse Reaction, Unknown, GI UPSET, 10/25/17) Uncoded Allergies: STEROID INJECTIONS (Adverse Reaction, Unknown, PT WAS TOLD NO STEROID INJECTIONS S/T GLAUCOMA, 07/04/16) Physical Exam Vital Signs Date Time Temp Pulse Resp B/P (MAP) Pulse Ox O2 Delivery O2 Flow Rate FiO2 10/25/17 14:08 76 20 130/76 96 10/25/17 12:34 77 20 121/64 96 10/25/17 11:27 97 Room Air 10/25/17 09:57 36.7 98 20 135/89 96 Room Air Physical Exam GENERAL: Sitting up in bed holding right abdomen, alert, well appearing, well nourished, minimal distress, non-toxic EYE EXAM: normal conjunctiva. OROPHARYNX: no exudate, no erythema, lips, buccal mucosa, and tongue normal and mucous membranes are moist NECK: supple, no nuchal rigidity, no adenopathy, non-tender LUNGS: Clear to auscultation. Normal chest wall mechanics HEART: no murmurs, S1 normal and S2 normal ABDOMEN: abdomen soft, tenderness to palpation of the entire right abdomen, normo-active bowel sounds, no masses, no rebound or guarding. BACK: Back is symmetrical on inspection and there is no deformity, no midline tenderness, no CVA tenderness. SKIN: no rashes and no bruising UPPER EXTREMITIES: upper extremities are grossly normal. LOWER EXTREMITIES: No pitting edema. NEURO EXAM: Normal sensorium, cranial nerves II-XII grossly intact, normal speech, no gross weakness of arms, no gross weakness of legs. Medical Decision & Procedures ER Provider Diagnostic Interpretation: Radiology results as stated below per my review and the radiologist's interpretation: CT OF THE ABDOMEN AND PELVIS WITH CONTRAST CLINICAL HISTORY: Diffuse abdominal pain. COMPARISON STUDY: CT of the abdomen and pelvis October 22, 2017. TECHNIQUE: Following IV administration of 117 mL of Optiray-320, axial images of the abdomen and pelvis were obtained from the lung bases to the proximal femurs. Images were reviewed in the axial, sagittal, and coronal planes. IV contrast was administered without complication. A dose lowering technique was utilized adhering to the principles of ALARA. Oral contrast was administered. CT DOSE: 773.52 mGy.cm FINDINGS: There is suspected fatty infiltration of the liver. No hepatic lesions are present. There is no biliary or pancreatic ductal dilatation. There is no hydronephrosis. Borderline splenomegaly is noted. No pneumatosis, free air or portal venous gas is present. The appendix is normal. A nodular density anterior to the distal descending colon suggests subacute to chronic epiploic appendagitis. Note is made of mild infiltration within the omentum, along the inferior aspect of the proximal transverse colon which is similar to CT of October 22, 2017. This measures 2.1 cm in extent. There is mild mass effect. There is no abscess. There is no free air. No associated inflamed diverticulum is noted. No suspicious osseous lesions are present. There is no lymphadenopathy. IMPRESSION: No significant change in mild infiltration within the omentum, located along the inferior aspect the proximal transverse colon, since CT of October 22, 2017. No abscess. Epiploic appendagitis or a small omental infarct are favored. Acute diverticulitis is considered less likely. Electronically signed by: Naman Wright M.D. 10/25/2017 1:37 PM Dictated Date/Time: 10/25/2017 12:59 PM Laboratory Results 10/25/17 11:10 Red Blood Count 4.33, Mean Corpuscular Volume 84.1, Mean Corpuscular Hemoglobin 29.1, Mean Corpuscular Hemoglobin Concent 34.6, Mean Platelet Volume 10.2, Neutrophils (%) (Auto) 70.0, Lymphocytes (%) (Auto) 23.5, Monocytes (%) (Auto) 4.9, Eosinophils (%) (Auto) 1.2, Basophils (%) (Auto) 0.1, Neutrophils # (Auto) 5.42, Lymphocytes # (Auto) 1.82, Monocytes # (Auto) 0.38, Eosinophils # (Auto) 0.09, Basophils # (Auto) 0.01 10/25/17 11:10 Test 10/25/17 11:00 10/25/17 11:10 Urine Color YELLOW Urine Appearance CLEAR (CLEAR) Urine pH 6.5 (4.5-7.5) Urine Specific Bradford 1.020 (1.000-1.030) Urine Protein NEG (NEG) Urine Glucose (UA) NEG (NEG) Urine Ketones NEG (NEG) Urine Occult Blood NEG (NEG) Urine Nitrite NEG (NEG) Urine Bilirubin NEG (NEG) Urine Urobilinogen NEG (NEG) Urine Leukocyte Esterase NEG (NEG) Urine WBC (Auto) 1-5 /hpf (0-5) Urine RBC (Auto) 5-10 /hpf (0-4) Urine Hyaline Casts (Auto) 5-10 /lpf (0-5) Urine Epithelial Cells (Auto) >30 /lpf (0-5) Urine Bacteria (Auto) NEG (NEG) Urine Test NEG (NEG) White Blood Count 7.74 K/uL (4.8-10.8) Red Blood Count 4.33 M/uL (4.2-5.4) Hemoglobin 12.6 g/dL (12.0-16.0) Hematocrit 36.4 % (37-47) Mean Corpuscular Volume 84.1 fL (80-100) Mean Corpuscular Hemoglobin 29.1 pg (25-34) Mean Corpuscular Hemoglobin Concent 34.6 g/dl (32-36) Platelet Count 202 K/uL (130-400) Mean Platelet Volume 10.2 fL (7.4-10.4) Neutrophils (%) (Auto) 70.0 % Lymphocytes (%) (Auto) 23.5 % Monocytes (%) (Auto) 4.9 % Eosinophils (%) (Auto) 1.2 % Basophils (%) (Auto) 0.1 % Neutrophils # (Auto) 5.42 K/uL (1.4-6.5) Lymphocytes # (Auto) 1.82 K/uL (1.2-3.4) Monocytes # (Auto) 0.38 K/uL (0.11-0.59) Eosinophils # (Auto) 0.09 K/uL (0-0.5) Basophils # (Auto) 0.01 K/uL (0-0.2) RDW Standard Deviation 43.8 fL (36.4-46.3) RDW Coefficient of Variation 14.2 % (11.5-14.5) Immature Granulocyte % (Auto) 0.3 % Immature Granulocyte # (Auto) 0.02 K/uL (0.00-0.02) Anion Gap 6.0 mmol/L (3-11) Est Creatinine Clear Calc Drug Dose 108.0 ml/min Estimated GFR () 128.3 Estimated GFR (Non- 110.7 BUN/Creatinine Ratio 11.7 (10-20) Calcium Level 9.0 mg/dl (8.5-10.1) Total Bilirubin 0.2 mg/dl (0.2-1) Direct Bilirubin < 0.1 mg/dl (0-0.2) Aspartate Amino Transf (AST/SGOT) 13 U/L (15-37) Alanine Aminotransferase (ALT/SGPT) 12 U/L (12-78) Alkaline Phosphatase 94 U/L (45-117) Total Protein 7.5 gm/dl (6.4-8.2) Albumin 3.5 gm/dl (3.4-5.0) Lipase 142 U/L (73-393) Laboratory results per my review. Medications Administered Medications (Trade) Dose Ordered Sig/Thai Route Start Time Stop Time Status Last Admin Dose Admin Sodium Chloride 1,000 ml @ 999 mls/hr Q1H1M STAT IV 10/25/17 10:48 10/25/17 11:48 DC 10/25/17 11:23 999 MLS/HR Ondansetron HCl (Zofran Inj) 4 mg NOW STAT IV 10/25/17 10:48 10/25/17 10:50 DC 10/25/17 11:23 4 MG Morphine Sulfate (MoRPHine SULFATE INJ) 6 mg NOW STAT IV 10/25/17 10:48 10/25/17 10:50 DC 10/25/17 11:23 6 MG ED Course ED COURSE: Vital signs were reviewed and showed tachycardia The patients medical record was reviewed The above diagnostic studies were performed and reviewed. ED treatments and interventions as stated above. 1022: The patient was evaluated in room A4. A complete history and physical examination was performed. 1048: Ordered Morphine Sulfate 6 mg IV, Zofran Inj 4 mg IV, Sodium Chloride 1000 ml @ 999 mls/hr IV 1400: Upon reevaluation, the patient is resting.I discussed my findings with the patient and she understands and agrees with the treatment plan. Based on the patients age, coexisting illnesses, exam and lab findings the decision to treat as an outpatient was made. The patient remained stable while under my care. The patient appeared well at the time of discharge. Medical Decision Differential diagnoses includes but is not limited to gastritis, peptic ulcer disease, GERD, gallbladder disease, pancreatitis, small bowel obstruction, acute coronary syndrome, pericarditis, ischemic bowel, irritable bowel disease, irritable bowel syndrome, appendicitis, diverticulitis, malignancy, hernia, urinary tract infection, torsion, perforation, trauma, infectious. Patient is a 41-year-old female who was seen here several days ago and diagnosed with epiploic appendicitis and possible diverticulitis. Labs were otherwise unremarkable. Prior to that she was seen in [facility] for same complaint and had a CT which was unremarkable. CBC along with BMP, LFT and lipase was unremarkable. UA was unremarkable. was negative. Patient was given IV fluids and narcotics. CT was repeated as she was sent here by the PCP for repeat scan. This showed no acute pathology. It newly excluded diverticulitis. I do believe this consistent with epiploic meningitis. Did recommend continuing antibiotics. Attempted to obtain C. difficile but was unsuccessful as she was observed here for close to 4 hours. Will need to follow-up with PCP for that. Discussed with Pt concerning signs and symptoms to watch out for. Pt was instructed to follow up with their PCP and discussed with the patient their option to return to the ED at anytime for persistent or worsening symptoms. The appropriate anticipatory guidance and out- patient management, including indications for return to the emergency department , were explained at length to the patient and understood. Medication Reconcilliation Current Medication List: was personally reviewed by me Blood Pressure Screening Patient's blood pressure: Normal blood pressure Blood pressure disposition: Did not require urgent referral Impression Primary Impression: Epiploic appendagitis Additional Impression: Abdominal pain Scribe Attestation The scribe's documentation has been prepared under my direction and personally reviewed by me in its entirety. I confirm that the note above accurately reflects all work, treatment, procedures, and medical decision making performed by me. Departure Information Dispostion Home / Self-Care Referrals Luís Paul M.D. (PCP) Forms Call Back Authorization, HOME CARE DOCUMENTATION FORM, IMPORTANT VISIT INFORMATION Patient Instructions Abdominal Pain - [facility], [facility] Additional Instructions Please follow up with your primary care doctor with in the next 24 hours. Any worsening of your symptoms, please return to the ED immediately. This includes any fevers greater than 100.4, worsening pain, chest pain, shortness breath, persistent nausea, vomiting, unable to eat or drink, or any other concerning signs or symptoms from your standpoint. You were given medications during this visit that will inhibit your ability to drive, operate machinery and work. Please do NOT drive, operate machinery, drink alcohol or work for the next 12hrs. Your CT confirms no worsening of your symptoms. Please take Tylenol or Motrin as needed for pain. Please follow-up with your primary care doctor. Problem Qualifiers Additional Impression: Abdominal pain Abdominal location: unspecified location Qualified Codes: R10.9 - Unspecified abdominal pain
== END 2017-10-25 14:13 | disposition home or self-care (01) ==
LOC: C.EDB 09:49 → C.EDA 14:13
DX: K63.89 Other specified diseases of intestine (principal); Q43.8 Other specified congenital malformations of intestine; R10.11 Right upper quadrant pain; R10.31 Right lower quadrant pain; R00.0 Tachycardia, unspecified; M50.90 Cervical disc disorder, unspecified, unspecified cervical region; F17.200 Nicotine dependence, unspecified, uncomplicated; Z90.710 Acquired absence of both cervix and uterus; Z83.3 Family history of diabetes mellitus; Z88.8 Allergy status to other drugs, medicaments and biological substances; Z88.1 Allergy status to other antibiotic agents

== ENCOUNTER → 2017-10-26 | Outpatient (CLI) | payer OTHER | END | disposition home or self-care (01) | LOC: C.LABMFLN 09:36 | PROVIDERS: ATTEND Family Medicine | DX: R19.7 Diarrhea, unspecified (principal) ==

== ENCOUNTER → 2017-11-06 | Outpatient (CLI) | payer OTHER | END | disposition home or self-care (01) | LOC: C.LABMFLN 13:50 | PROVIDERS: ATTEND Surgery | DX: R10.9 Unspecified abdominal pain (principal); R19.7 Diarrhea, unspecified ==

== ENCOUNTER → 2017-11-15 | Outpatient (CLI) | payer OTHER ==
[~2017-11-15] MED LIST changes: -METR-163 PO; -SACC250C3 PO
--- NOTE | 2017-11-15 09:11 | DIAGNOSTIC IMAGING REPORT ---
BILIARY ABDOMEN LIMITED CLINICAL HISTORY: R10.9 Abdominal pain, [id number] TECHNIQUE: Ultrasound COMPARISON STUDY: None FINDINGS: Fatty infiltration of liver. Normal gallbladder. Common bile duct 4 mm. Pancreas and right kidney unremarkable. IMPRESSION: Fatty infiltration of liver. Otherwise negative study. The above report was generated using voice recognition software. It may contain grammatical, syntax or spelling errors. Electronically signed by: Santo Rizo M.D. 11/15/2017 9:10 AM Dictated Date/Time: 11/15/2017 9:04 AM
== END | disposition home or self-care (01) ==
LOC: C.ULTR 08:23
PROVIDERS: ATTEND Registered Nurse
DX: R19.7 Diarrhea, unspecified (principal); R10.9 Unspecified abdominal pain; K76.0 Fatty (change of) liver, not elsewhere classified

== ENCOUNTER → 2017-11-30 | Outpatient (CLI) | payer OTHER ==
[~2017-11-30] MED LIST changes: +SINCALIDE INJ 1.8 MCG in SODIUM CHLORIDE 0.9% 100ML 100 ML IV ONE
--- NOTE | 2017-11-30 14:54 | DIAGNOSTIC IMAGING REPORT ---
HEPATOBILIARY EF IMAGING HISTORY: Pain. Nausea. R10.9 Abdominal pain, [id number] Diarrhea COMPARISON: None. TECHNIQUE: Immediately following the intravenous administration of 5.1 mCi Tc-99m Choletec, dynamic anterior abdominal imaging pre/post 1.8 mcg of Kinevac was performed. FINDINGS: Uniform hepatic tracer accumulation is shown. Prompt intrahepatic biliary excretion is seen. The gallbladder, common bile duct, and small bowel are all visualized by 30 minutes. This appearance represents the normal sequence of biliary excretion. The gallbladder ejection fraction following administration of Kinevac was 62 % (normal >35%). IMPRESSION: 1. No evidence for cystic duct obstruction. 2. Gallbladder ejection fraction calculated to be 62 %. The above report was generated using voice recognition software. It may contain grammatical, syntax or spelling errors. Electronically signed by: Santo Rizo M.D. 11/30/2017 2:52 PM Dictated Date/Time: 11/30/2017 2:51 PM
== END | disposition home or self-care (01) ==
LOC: C.NUCL 12:24
PROVIDERS: ATTEND Registered Nurse
DX: R19.7 Diarrhea, unspecified (principal); R10.9 Unspecified abdominal pain

== ENCOUNTER → 2017-12-11 | Outpatient (CLI) | payer OTHER ==
[~2017-12-11] MED LIST changes: -SINCALIDE INJ 1.8 MCG in SODIUM CHLORIDE 0.9% 100ML 100 ML IV ONE
--- NOTE | 2017-12-11 11:14 | DIAGNOSTIC IMAGING REPORT ---
UPPER GI SERIES AND SMALL BOWEL FOLLOW-THROUGH CLINICAL HISTORY: Abdominal pain. Diarrhea. COMPARISON STUDY: CT of the abdomen and pelvis October 25, 2017. FLUOROSCOPY TIME: 3.6 minutes. FINDINGS: 24 fluoroscopic images were obtained. Director Drug KUB demonstrates a normal bowel gas pattern. Esophageal motility was normal. No esophageal mass or stricture was identified. No reflux was elicited. No hiatal hernia was noted. Gastric fold pattern was normal. Duodenum was normal. Jejunal and ileal fold patterns were normal. No small bowel mass or other mucosal abnormality was identified. Transit time to the cecum was rapid at 40 minutes. Terminal ileum was normal. IMPRESSION: Unremarkable double contrast upper GI series and small bowel follow-through. Electronically signed by: Naman Wright M.D. 12/11/2017 11:13 AM Dictated Date/Time: 12/11/2017 11:11 AM
== END | disposition home or self-care (01) ==
LOC: C.RAD 10:05
PROVIDERS: ATTEND Registered Nurse
DX: R19.7 Diarrhea, unspecified (principal); R10.9 Unspecified abdominal pain

== ENCOUNTER → 2018-01-01 | Outpatient (CLI) | payer OTHER ==
--- NOTE | 2018-01-02 06:56 | DIAGNOSTIC IMAGING REPORT ---
MRI OF THE LUMBAR SPINE WITHOUT CONTRAST CLINICAL HISTORY: Protrusion of lumbar disc. Back pain. Previous lumbar surgery. COMPARISON STUDY: Lumbar spine MRI August 14, 2017. TECHNIQUE: Utilizing a 1.5 Corinne magnet and dedicated coil, multiplanar, multiecho imaging of the lumbar spine was performed without IV contrast. FINDINGS: For purposes of numbering on this exam, the L5-S1 disc space is assigned to axial image 23 of 25. Alignment of the lumbar spine is anatomic. Vertebral body heights are maintained. There is no suspicious marrow replacement. The conus terminates at the L1-L2 level. Paravertebral soft tissues are unremarkable. L1-2: The central canal and neural foramen are patent. L2-3: The central canal and neural foramina patent. L3-4: Central canal and neural foramen are patent. L4-5: The central canal and right neural foramen are patent. There is minimal narrowing of the left neural foramen. There is a tiny left foraminal disc protrusion. This is either unchanged or slightly improved since previous exam. L5-S1: Central canal neural foramen are patent. IMPRESSION: 1. Minimal degenerative changes of the lumbar spine. Minimal left neural foraminal narrowing at L4-L5 which is either unchanged or slightly improved since prior exam. Tiny left foraminal disc protrusion at L4-L5. 2. Patent central canal. Electronically signed by: Naman Wright M.D. 01/02/2018 6:55 AM Dictated Date/Time: 01/01/2018 2:58 PM
== END | disposition home or self-care (01) ==
LOC: C.MRI 14:00
PROVIDERS: ATTEND Orthopaedic Surgery Orthopaedic Surgery of the Spine
DX: M51.26 Other intervertebral disc displacement, lumbar region (principal)

== ENCOUNTER → 2018-01-01 | Outpatient (CLI) | payer OTHER ==
--- NOTE | 2018-01-01 15:50 | DIAGNOSTIC IMAGING REPORT ---
CT SCAN OF THE PARANASAL SINUSES CLINICAL HISTORY: Allergic colitis. Sinus infections and headache. COMPARISON STUDY: No priors. TECHNIQUE: High-resolution CT scan of the paranasal sinuses is performed. Images are reviewed in the axial, sagittal, and coronal planes. IV contrast was not administered for this examination. The examination is performed using the fusion protocol. A dose lowering technique was utilized adhering to the principles of ALARA. CT DOSE: 668.04 mGycm FINDINGS: Maxillary antra: Clear bilaterally. A thin bony septation is seen within the inferior left maxillary antrum. Anterior ethmoid sinuses: Clear. Posterior ethmoid sinuses: Clear. Sphenoid sinuses: Clear. Frontal sinuses: Clear. Ostiomeatal complexes: Patent bilaterally. A small Germaine cell is seen on the left. Frontoethmoidal and sphenoethmoidal recesses: Patent bilaterally. Carotid arteries: The carotid arteries are covered and without septal attachments. Ethmoid roofs: The ethmoid roofs are symmetric. Nasal turbinates: Normal in appearance. Nasal septum: There is minimal rightward deviation of the bony nasal septum with a small leftward projecting spur. Optic nerves: Covered. Orbits: The bony orbits are intact. Orbital contents are normal in appearance. Calvarium: The imaged calvarium is normal in appearance Mastoid air cells: Well pneumatized. Brain parenchyma: Partially visualized brain parenchyma is within normal limits. IMPRESSION: No paranasal sinus disease is identified. See above discussion. Electronically signed by: Gabe Herbert M.D. 01/01/2018 3:49 PM Dictated Date/Time: 01/01/2018 3:46 PM
== END | disposition home or self-care (01) ==
LOC: C.CTS 14:01
PROVIDERS: ATTEND Physician Assistant
DX: J30.9 Allergic rhinitis, unspecified (principal)

== ENCOUNTER → 2018-03-22 | Outpatient (CLI) | payer OTHER ==
[~2018-03-22] MED LIST changes: +ABL/15 PO; +CARI350T28 PO; -CIPR-255 PO; -CLR10 PO; +ESTR2TAB PO; -IBUP-1451 PO; +MELO7.5T5 PO; -METH500T37 PO; -ONDA4TAB10 SL; -XNX5 PO; +medical marijuana
--- NOTE | 2018-03-22 16:07 | MAMMOGRAPHY REPORT ---
BILATERAL DIGITAL DIAGNOSTIC MAMMOGRAM TOMOSYNTHESIS WITH CAD AND TARGETED BILATERAL ULTRASOUND: 03/22 CLINICAL HISTORY: Six-month follow-up of right breast mass. The patient also reports a sore on her le ft breast for approximately 2 months, which is not painful. She denies any injury, insect bite, or ot her cause for the sore. TECHNIQUE: The study was acquired using full field digital technology and interpreted from soft copy. Breast tomosynthesis in addition to standard 2D mammography was performed. Current study was also ev aluated with a Computer Aided Detection (CAD) system. Bilateral CC and MLO 2D and tomosynthesis imag es were obtained. COMPARISON: Comparison is made to exams dated: 10/09/2017 mammogram, 08/17/2016 mammogram, 09/30/2015 m ammogram, 03/04/2015 mammogram, 02/12/2015 mammogram, and 02/11/2015 mammogram. BREAST COMPOSITION: The tissue of both breasts is almost entirely fatty. FINDINGS: Again noted is a circumscribed oval 12 mm mass within the right inferior breast at approximately 5 to 6:00. The mass is stable mammographically dating back to at least the 2014 exam. A triangle marker raza the site of the sore on the left upper outer breast. No suspicious mammographic abnormalities are seen in this region. The remainder of both breasts are stable mammographically compared to prio r exams, without suspicious masses, calcifications, or areas of architectural distortion noted. Targeted ultrasound was performed of the mammographic mass in the right breast. In the right 6:00 br east, 5 cm from the nipple, again noted is an oval circumscribed anechoic mass with a thin internal s eptation, measuring 10 x 3 x 7 mm. There is corresponds with the stable mammographic mass and is con sistent with a benign cyst. Targeted ultrasound was performed of the sore on the left 1:00 periareol ar breast. No suspicious masses, fluid collections, or other suspicious findings are seen in this re gion on ultrasound. IMPRESSION: , ULTRASOUND ACR BI-RADS CATEGORY 2: BENIGN 1. Benign 10 mm cyst in the right 6:00 breast, which is stable mammographically dating back to the 015 exam. 2. No suspicious mammographic or sonographic abnormality at the site of the sore on the left 1:00 pe riareolar breast. Recommend clinical follow-up to resolution. If the sore does not resolve in a darío greyson manner, then skin biopsy should be performed. There is no mammographic or sonographic evidence of malignancy. A 1 year screening mammogram is recom mended.(03/23/2019) The patient has been verbally notified of the results. Some breast cancers are not detected with mammography. A negative mammographic report should not kelly y biopsy if a clinically suggestive mass is present. Norma Rick M.D. ah/:03/22/2018 10:49:12 Yard Cleaner: RT Tong(R)(M), [facility]; Norma Rick MD, [facility] letter sent: Normal 1/2 OVERALL STUDY BIRADS: 2 Benign
== END | disposition home or self-care (01) ==
LOC: C.MAMM 09:56
PROVIDERS: ATTEND Family Medicine
DX: R92.8 Other abnormal and inconclusive findings on diagnostic imaging of breast (principal); N60.01 Solitary cyst of right breast

== ENCOUNTER → 2018-04-10 | Outpatient (CLI) | payer OTHER ==
[2018-04-10 18:03] LABS: ALT/SGPT 21 U/L (12-78); AST/SGOT 22 U/L (15-37)
== END | disposition home or self-care (01) ==
LOC: C.LABMFLN 13:47
PROVIDERS: ATTEND Family Medicine
DX: E78.5 Hyperlipidemia, unspecified (principal)

== ENCOUNTER 2021-04-09 12:18 | Observation (INO) ==
--- NOTE | 2021-03-12 15:48 | PAT Medication Instructions ---
Medication Instructions Date of Service March 12, 2021 Home Medications Medication Instructions Recorded simvastatin 40 mg tablet 40 mg PO DAILY #90 tab 09/18/20 nebulizer accessories #1 ea 10/15/20 nebulizers #1 ea 10/15/20 ipratropium 0.5 mg-albuterol 3 mg 3 ml INHALATION Q4H PRN #90 ml 10/16/20 (2.5 mg base)/3 mL nebulization soln Ventolin HFA 90 mcg/actuation 2 puff INHALATION Q4H PRN #18 gm NS 11/17/20 aerosol inhaler metformin 500 mg tablet 500 mg PO BID #60 tab 01/29/21 blood sugar diagnostic #100 ea 03/01/21 carisoprodol 350 mg tablet 350 mg PO QID PRN #120 tab 03/01/21 lancets #100 ea 03/01/21 buspirone 15 mg tablet 15 mg PO BID simvastatin 40 mg tablet 40 mg PO DAILY ipratropium 0.5 mg-albuterol 3 mg (2.5 mg base)/3 mL nebulization soln 3 ml INHALATION Q4H PRN Ventolin HFA 90 mcg/actuation aerosol inhaler 2 puff INHALATION Q4H PRN lisdexamfetamine 30 mg capsule 30 mg PO QAM metformin 500 mg tablet 500 mg PO BID carisoprodol 350 mg tablet 350 mg PO QID PRN albuterol sulfate 2.5 mg INHALATION Q6H PRN fenofibrate nanocrystallized 48 mg PO HS levocetirizine [Xyzal] 5 mg PO QAM lurasidone [Latuda] 120 mg PO PM mirabegron [Myrbetriq] 50 mg PO QPM montelukast [Singulair] 10 mg PO QPM propranolol 1 tab PO BID PRN rizatriptan [Maxalt-CITY LIBRARY DIRECTOR] 10 mg PO UD PRN ropinirole 0.5 mg PO QPM semaglutide [Ozempic] 0.25 mg SUBCUT WK zolpidem [Ambien CR] 12.5 mg PO HS Continue as directed simvastatin 40 mg tablet 40 mg PO DAILY semaglutide [Ozempic] 0.25 mg SUBCUT WK (just do not take morning of surgery) STOP taking 48 hours before surgery fenofibrate nanocrystallized 48 mg PO HS DO NOT take the morning of surgery metformin 500 mg tablet 500 mg PO BID carisoprodol 350 mg tablet 350 mg PO QID PRN levocetirizine [Xyzal] 5 mg PO QAM lisdexamfetamine 30 mg capsule 30 mg PO QAM Take morning of surgery With a small sip of water, OTHERWISE NOTHING TO EAT OR DRINK AFTER MIDNIGHT: buspirone 15 mg tablet 15 mg PO BID ipratropium 0.5 mg-albuterol 3 mg (2.5 mg base)/3 mL nebulization soln 3 ml INHALATION Q4H PRN (if needed) Ventolin HFA 90 mcg/actuation aerosol inhaler 2 puff INHALATION Q4H PRN (use if needed; please bring with you to hospital day of surgery if possible) albuterol sulfate 2.5 mg INHALATION Q6H PRN (if needed) propranolol 1 tab PO BID PRN (if needed) rizatriptan [Maxalt-CITY LIBRARY DIRECTOR] 10 mg PO UD PRN (if needed) Take evening before surgery buspirone 15 mg tablet 15 mg PO BID ipratropium 0.5 mg-albuterol 3 mg (2.5 mg base)/3 mL nebulization soln 3 ml INHALATION Q4H PRN (if needed) Ventolin HFA 90 mcg/actuation aerosol inhaler 2 puff INHALATION Q4H PRN (if needed) metformin 500 mg tablet 500 mg PO BID carisoprodol 350 mg tablet 350 mg PO QID PRN (if needed) albuterol sulfate 2.5 mg INHALATION Q6H PRN (if needed) lurasidone [Latuda] 120 mg PO PM mirabegron [Myrbetriq] 50 mg PO QPM montelukast [Singulair] 10 mg PO QPM propranolol 1 tab PO BID PRN (if needed) rizatriptan [Maxalt-CITY LIBRARY DIRECTOR] 10 mg PO UD PRN (if needed) ropinirole 0.5 mg PO QPM zolpidem [Ambien CR] 12.5 mg PO HS Other Notes If you have any questions please call us at [phone] or [phone] or [phone] or [phone]
--- NOTE | 2021-03-16 12:54 | Anesthesiology Consultation ---
Date of Service March 16, 2021 Assessment & Plan (1) Encounter for pre-operative examination: Chart Review Chart Review: Acceptable Risk for Surgery (pending preop Covid testing results ) and Patient seen in Pre Admission Testing - Check BSG AM DOS Per PAT appointment 03/16/2021, traveled to [place] to visit family- returned 03/09/21. Stayed with family. Uses PPE in public. No known Covid infection in the past 90 days. No known Covid positive contacts or Covid related symptoms. Pt is vaccinated for Covid. Preop Covid testing scheduled 04/07/21= will await results. Educated on importance of self quarantining, social distancing and wearing mask in public both for the patient after Covid testing done Teaching & Discussion Pre-Anesthesia Teaching/Discussion Notes: Instructed NPO after midnight before surgery,except medications with 15 cc of water. Medication instructions provided according to the PAT guidelines. History Surgery Operation Date: 04/09/21 07:15 Proposed Procedures p Adenotonsillectomy, Uvulopalatoplasty - Fawn Martin MD s Septoplasty, Celon Turbinates - Fawn Martin MD Height/Weight Height: 4 ft 10 in Weight: 89.4 kg Allergies Allergy/AdvReac Type Severity Reaction Status Date / Time grass pollen Allergy Intermediate sinus Verified 03/12/21 14:31 congestion house dust mite Allergy Intermediate sinus Verified 03/12/21 14:31 congestion bupropion Allergy Unknown HIVES Verified 03/12/21 14:31 escitalopram Allergy Unknown HIVES Verified 03/12/21 14:31 topiramate Allergy Unknown INDUCED Verified 03/12/21 14:31 GLAUCOMA Corticosteroids AdvReac Severe GLACOMA Verified 03/12/21 14:31 (Glucocorticoids) clarithromycin AdvReac Unknown GI UPSET Verified 03/12/21 14:31 STEROID INJECTIONS AdvReac Unknown PT WAS Uncoded 03/12/21 14:31 TOLD NO STEROID INJECTIONS S/T GLAUCOMA Medications Home Medications Medication Instructions Recorded Confirmed Last Taken buspirone 15 mg tablet 15 mg PO BID tab 06/15/20 03/12/21 Unknown nebulizer accessories #1 ea 10/15/20 03/03/21 Unknown nebulizers #1 ea 10/15/20 03/03/21 Unknown ipratropium 0.5 mg-albuterol 3 mg 3 ml INHALATION Q4H PRN #90 ml 10/16/20 03/12/21 Unknown (2.5 mg base)/3 mL nebulization soln Ventolin HFA 90 mcg/actuation 2 puff INHALATION Q4H PRN #18 gm NS 11/17/20 03/12/21 Unknown aerosol inhaler lisdexamfetamine 30 mg capsule 30 mg PO QAM 01/08/21 03/12/21 Unknown metformin 500 mg tablet 500 mg PO BID #60 tab 01/29/21 03/12/21 Unknown blood sugar diagnostic #100 ea 03/01/21 03/03/21 Unknown carisoprodol 350 mg tablet 350 mg PO QID PRN #120 tab 03/01/21 03/12/21 Unknown lancets #100 ea 03/01/21 03/03/21 Unknown albuterol sulfate 2.5 mg INHALATION Q6H PRN 03/12/21 03/12/21 Unknown fenofibrate nanocrystallized 48 mg PO HS 03/12/21 03/12/21 Unknown levocetirizine [Xyzal] 5 mg PO QAM 03/12/21 03/12/21 Unknown lurasidone [Latuda] 120 mg PO PM 03/12/21 03/12/21 Unknown montelukast [Singulair] 10 mg PO QPM 03/12/21 03/12/21 Unknown propranolol 1 tab PO BID PRN 03/12/21 03/12/21 Unknown rizatriptan [Maxalt-BEAMSTER] 10 mg PO UD PRN 03/12/21 03/12/21 Unknown ropinirole 0.5 mg PO QPM 03/12/21 03/12/21 Unknown semaglutide [Ozempic] 0.25 mg SUBCUT WK 03/12/21 03/12/21 Unknown zolpidem [Ambien CR] 12.5 mg PO HS 03/12/21 03/12/21 Unknown mirabegron 50 mg tablet,extended 50 mg PO QPM #90 tab 03/15/21 Unknown release 24 hr Past Medical History Medical History ADHD Stable Anxiety Stable Asthma well controlled Attention deficit disorder (ADD) Bipolar 2 disorder Cervical disc disease S/p cervical fusion- no limited ROM Complex regional pain syndrome left hand Diabetes mellitus, type 2 Hgb A1C 8.2 on 03/16/21 GERD (gastroesophageal reflux disease) Well controlled and stable Glaucoma Follows with eye doctor routinely Hyperlipidemia IBS (irritable bowel syndrome) Insomnia Lumbar radiculopathy Spinal cord stimulator in place - educated to bring remote DOS Medical cannabis use Migraine headache Nausea and vomiting after administration of anesthetic agent Obstructive sleep apnea, adult cpap nightly Peripheral neuropathy Post traumatic stress disorder Reaction, depressive, manic RLS (restless legs syndrome) Seasonal allergies Spinal cord stimulator status Exercise / Class Metabolic Activity II 4-5 Yardwork/Stairs/Walk up hill (one flight of stairs - no chest pain or SOB ) Past Family History Family History Mother Anxiety Depression Environmental allergies Asthma Allergies Sister Anxiety Depression Gallbladder disease Brother Anxiety Depression Tourette disorder Grandmother Cancer Diabetes Cardiac disorder Grandfather Cancer Diabetes Grandmother Colon cancer Father Cancer Daughter Environmental allergies Asthma Sinus disorder Denies family history of Hearing loss No family history of adverse response to anesthesia No family history of bleeding disorder Heart disease Hypertension Stroke Past Surgical History Surgical History H/O section H/O hand surgery left hand surgery x6 for reconstruction and ligament/tendon repairs H/O umbilical hernia repair H/O vaginal hysterectomy with BSO History of carpal tunnel release right History of colonoscopy History of esophagogastroduodenoscopy (EGD) History of vitrectomy bilateral Hx of umbilical hernia repair S/P cervical spinal fusion 2 levels with bone grafting. Full ROM. S/P epidural steroid injection Status post breast reduction Past Anesthesia History No Hx of Anesthesia Complications (with exception to PONV ) and No Family Hx of Anesthesia Complications History of PONV History of PONV (relieved with Zofran per patient ) and Hx of Motion Sickness Social History Smoking Status: Current every day smoker tobacco type: cigarettes Smoking cigarettes per day: 10 cigarrettes daily Do You Dip or Chew Tobacco: No Hx Alcohol Use: Yes alcohol intake frequency: holidays/special occasions only Hx Substance Use: Yes (medical marijuana) substance use type: marijuana (has medical marijuana card ) Last Used Substance Other:: vape daily -- last used 03/12/21 Review of Systems Patient denies chest pain, shortness of breath, dyspnea on exertion, cough, wheezing, palpitations. No hx of seizures, stroke, NC. No hx of blood clots or blood transfusions Physical Exam Vital Signs VITALS BP 120/72 P 87 TEMP 98.2 SP02 95% RESP 16 Constitutional no acute distress ENMT Mouth: no TMJ clicking Thyromental Distance: > or= 3.5 Finger Breadths (3.5) Mallampati Class: III Neck + limited neck extension (minimal ) Respiratory normal respiratory effort; no respiratory distress Auscultation: lungs clear to auscultation bilaterally; no wheezes Cardiovascular Rate/Rhythm: regular rate and regular rhythm Heart Sounds: no murmur Vessels: no carotid bruit Musculoskeletal Spine: no pain with cervical ROM Extremities: extremities normal to inspection Psychiatric Orientation: alert Lab Results Anesthesia Preop Results Results Anesthesia Widget: WBC 10.54 K/uL (4.8-10.8) 03/16/21 Hgb 14.6 g/dL (12.0-16.0) 03/16/21 Hct 42.8 % (37-47) 03/16/21 Plt 242 K/uL (130-400) 03/16/21 Na 137 mmol/L (136-145) 03/16/21 K 3.5 mmol/L (3.5-5.1) 03/16/21 Cl 104 mmol/L (98-107) 03/16/21 CO2 24 mmol/L (21-32) 03/16/21 BUN 9 mg/dl (7-18) 03/16/21 Creat 0.63 mg/dl (0.6-1.2) 03/16/21 Glucose Level 142 mg/dl (70-99) H 03/16/21 HA1c 8.2 % (4.5-5.6) H 03/16/21 Lab Comments: Informed surgeon's office of elevated Hgb A1C Testing Electrocardiogram Date: 03/16/21 Findings: + NSR @ (96bpm) Normal EKG per cardio. Other Testing Chest CT 01/14/21= no acute pulmonary disease. No adenopathy. Few stable 2-3 mm nodules are again noted. No focal consolidation. Pleural spaces unremarkable. No pneumothorax or pleural effusion. Holter monitor 10/19/2020 = good quality. [id number] hours and 40 minutes. Dominant rhythmnormal sinus rhythm with average heart rate of 96 bpm. Rhythm tended toward sinus tachycardia. Rare PACs/PVCs. No symptoms reported.
--- NOTE | 2021-04-07 08:40 | History & Physical Report ---
Date of Service April 07, 2021 Assessment & Plan (1) Obstructive sleep apnea, adult: Plan: For tonsillectomy, possible adenoidectomy, uvulopalatopharyngoplasty, septoplasty, and radiofrequency volume reduction of turbinates. I did explain all the risk and implications to the patient. She will be observed overnight after surgery. She will most likely need to continue CPAP after surgery. (2) Enlarged tonsils and adenoids: (3) Nasal septal deviation: History of Present Illness Chief Complaint: Sleep apnea Primary Care Provider: Luís Paul DO This 45-year-old lady has obstructive sleep apnea and has been unable to wear her CPAP due to nasal obstruction. She is also a smoker. Her BMI is 41. Because of the inability to wear CPAP she requested definitive treatment. Allergies Allergy/AdvReac Type Severity Reaction Status Date / Time bupropion Allergy Intermediate HIVES Verified 04/06/21 09:18 escitalopram Allergy Intermediate HIVES Verified 04/06/21 09:18 grass pollen Allergy Intermediate sinus Verified 03/24/21 07:41 congestion house dust mite Allergy Intermediate sinus Verified 03/24/21 07:41 congestion Corticosteroids AdvReac Severe GLACOMA Verified 03/24/21 07:41 (Glucocorticoids) clarithromycin AdvReac Mild GI UPSET Verified 04/06/21 09:18 topiramate AdvReac Mild INDUCED Verified 04/06/21 09:18 GLAUCOMA Home Medications Medication Instructions Recorded Confirmed Type buspirone 15 mg tablet 15 mg PO BID tab 06/15/20 03/24/21 History nebulizer accessories #1 ea 10/15/20 03/24/21 Rx nebulizers #1 ea 10/15/20 03/24/21 Rx ipratropium 0.5 mg-albuterol 3 mg 3 ml INHALATION Q4H PRN #90 ml 10/16/20 03/24/21 Rx (2.5 mg base)/3 mL nebulization soln Ventolin HFA 90 mcg/actuation 2 puff INHALATION Q4H PRN #18 gm NS 11/17/20 03/24/21 Rx aerosol inhaler (albuterol sulfate) lisdexamfetamine 30 mg capsule 30 mg PO QAM 01/08/21 03/24/21 History (Vyvanse) metformin 500 mg tablet 500 mg PO BID #60 tab 01/29/21 03/24/21 Rx blood sugar diagnostic #100 ea 03/01/21 03/24/21 Rx carisoprodol 350 mg tablet (Soma) 350 mg PO QID PRN #120 tab 03/01/21 03/24/21 Rx lancets #100 ea 03/01/21 03/24/21 Rx albuterol sulfate 2.5 mg INHALATION Q6H PRN 03/12/21 03/24/21 History lurasidone 120 mg tablet (Latuda) 120 mg PO PM 03/12/21 03/24/21 History propranolol 1 tab PO BID PRN 03/12/21 03/24/21 History rizatriptan 10 mg disintegrating 10 mg PO UD PRN 03/12/21 03/24/21 History tablet (Maxalt-BROADCAST OPERATIONS ENGINEER) semaglutide (Ozempic) 0.25 mg SUBCUT WK 03/12/21 03/24/21 History zolpidem 12.5 mg tablet,extended 12.5 mg PO HS 03/12/21 03/24/21 History release,multiphase (Ambien CR) mirabegron 50 mg tablet,extended 50 mg PO QPM #90 tab 03/15/21 03/24/21 Rx release 24 hr (Myrbetriq) lorazepam 0.5 mg tablet (Ativan) 0.5 mg PO DAILY PRN 03/24/21 03/24/21 History fenofibrate nanocrystallized 48 mg 48 mg PO HS #90 tab 03/29/21 Rx tablet flash glucose sensor (FreeStyle #1 ea 03/29/21 Rx Maite 2 Sensor) levocetirizine 5 mg tablet (Xyzal) 5 mg PO QAM #90 tab 03/29/21 Rx montelukast 10 mg tablet 10 mg PO QPM #90 tab 03/29/21 Rx (Singulair) ropinirole 0.5 mg tablet 0.5 mg PO QPM #90 tab 03/29/21 Rx Past Med/Surg History Medical History ADHD Stable Anxiety Stable Asthma well controlled Attention deficit disorder (ADD) Bipolar 2 disorder Cervical disc disease S/p cervical fusion- no limited ROM Complex regional pain syndrome left hand Diabetes mellitus, type 2 Hgb A1C 8.2 on 03/16/21 GERD (gastroesophageal reflux disease) Well controlled and stable Glaucoma Follows with eye doctor routinely Hyperlipidemia IBS (irritable bowel syndrome) Insomnia Lumbar radiculopathy Spinal cord stimulator in place - educated to bring remote DOS Medical cannabis use Migraine headache Nausea and vomiting after administration of anesthetic agent Obstructive sleep apnea, adult cpap nightly Peripheral neuropathy Post traumatic stress disorder Reaction, depressive, manic RLS (restless legs syndrome) Seasonal allergies Spinal cord stimulator status Surgical History H/O section H/O hand surgery left hand surgery x6 for reconstruction and ligament/tendon repairs H/O umbilical hernia repair H/O vaginal hysterectomy with BSO History of carpal tunnel release right History of colonoscopy History of esophagogastroduodenoscopy (EGD) History of vitrectomy bilateral Hx of umbilical hernia repair S/P cervical spinal fusion 2 levels with bone grafting. Full ROM. S/P epidural steroid injection Status post breast reduction Family History Mother Anxiety Depression Environmental allergies Asthma Allergies Sister Anxiety Depression Gallbladder disease Brother Anxiety Depression Tourette disorder Grandmother Cancer Diabetes Cardiac disorder Grandfather Cancer Diabetes Grandmother Colon cancer Father Cancer Daughter Environmental allergies Asthma Sinus disorder Denies family history of Hearing loss No family history of adverse response to anesthesia No family history of bleeding disorder Heart disease Hypertension Stroke Social History Smoking Status: Current every day smoker Tobacco Type: Cigarettes Age Started Using Tobacco: 16; packs per day: 1; Cigarettes Per Day: 10 cigarrettes daily; Second Hand Exposure: No; Do You Dip or Chew Tobacco: No; Tobacco Cessation Education Requested by Patient: No Hx Alcohol Use: No Hx Substance Use: No Preferred Language: Macedonian Communication Ability: Effective Bridge Welder Required: No Beliefs That Will Affect Care: None marital status: Current Living Situation: Family Current Living Situation Comment: spouse and daughter current occupational status: disabled How many Children do You have: 2 Other Information That Helps Us Care for You: No Feels Safe at Home: Yes Safety Concerns: Feels Safe At This Time Childhood Exposure to Second-Hand Smoke: Yes caffeine: Yes (tea) Dental Care, Regularly: Yes Physical Activity Frequency: Does not Exercise Seatbelt Use: always Assistive Devices: CPAP and Nebulizer Physical Exam Constitutional: + morbidly obese (BMI of 41) Eyes: PERRL, conjunctivae normal, anicteric sclerae ENMT: Nose: + turbinate abnormality (Hypertrophy) and + septum abnormality (Septal deviation left) Throat: + posterior oropharynx abnormality (3-4+ tonsillar hypertrophy,) and + tonsil abnormality (Sidewall collapse on supine Kidd) Neck: + shortened thyromental distance and + short neck Respiratory: normal respiratory effort, lungs clear to auscultation Cardiovascular: RRR, no murmur, no edema PG Care Time/CCT Total # of Minutes Spent Total Time Spent with Patient: Total time spent is greater than 50% in coordination of care (as documented) at patient's floor/unit and/or counseling patient: Coding Level of Care Code None Diagnoses Obstructive sleep apnea, adult G47.33 Enlarged tonsils and adenoids J35.3 Nasal septal deviation J34.2
[~2021-04-09 12:18] MED LIST changes: -ABL/15 PO; -CARB200T PO; -CARI350T28 PO; -DIAZ2TAB PO; -ESTR2TAB PO; -HYDR12.56 PO; -LANS30CA12 PO; +LR 15ML/HR IV SCH; -MELO7.5T5 PO; -SERT100T PO; -SIMV10TA2 PO; -SNQ/25 PO; -VNTHFA/IN INH; +ceFAZolin 2000MG 2,000 MG/15 ML SYR IV SCH; -medical marijuana
--- NOTE | 2021-04-09 13:50 | History & Physical Bridge Note ---
Date of Service April 09, 2021 History & Physical Bridge Note I have examined the patient, reviewed the History & Physical and in the interval since the performance of the History & Physical I have noted the following changes of clinical significance: no changes noted
[2021-04-09] MEDS ORDERED: ePHEDrine sulfate 50 MG/ML AMP IV PRN (13:53)
[2021-04-09] MEDS ORDERED: ONDANSETRON INJ 2 MG/ML 2 ML VIAL IV PRN ×2 (13:53→16:06)
[2021-04-09] MEDS ORDERED: LABETALOL HCL IV 5 MG/ML 20ML IV PRN (13:53)
[2021-04-09] MEDS ORDERED: ATROPINE SULFATE 0.1 MG/ML 10ML SYR IV PRN (13:53)
[2021-04-09] MEDS ORDERED: MEPERIDINE HCL 25 MG/ML CARP/VIAL IV PRN (13:53)
[2021-04-09] MEDS ORDERED: PHENYLEPHRINE 100MCG/ML 5ML SYR IV PRN (13:53)
[2021-04-09] MEDS ORDERED: LIDOCAINE 4% INH SOLN 4 ML BTL ONE (14:15)
[2021-04-09] MEDS ORDERED: LIDOCAINE 2%/EPINEPHRINE 1:100,000 20ML ONE (14:15)
[2021-04-09] MEDS ORDERED: BACITRACIN OINT 15 GM TUBE ONE (14:15)
[2021-04-09] MEDS ORDERED: BUPIVACAINE 0.5 % 5 MG/1 ML MPF 30ML VIAL ONE (14:16)
[2021-04-09] MEDS ORDERED: EPINEPHrine INJ 1 MG/ML AMP ONE (14:17)
[2021-04-09] MEDS ORDERED: EpINEphrine HCL INJ 1 MG/ML 1ML SYRINGE ONE (14:17)
[2021-04-09] MEDS ORDERED: GELATIN SPONGE 12-7MM ONE (14:18)
[2021-04-09] MEDS ORDERED: SCOPOLAMINE 1 MG TDSY TD ONE (14:19)
[2021-04-09] MEDS ORDERED: PROPOFOL IV EMULSION 10 MG/ML 20 ML VIAL IV ONE ×2 (14:20→14:53)
[2021-04-09] MEDS ORDERED: MIDAZOLAM HCL 1 MG/ML 2ML VIAL ONE (14:20)
[2021-04-09] MEDS ORDERED: ROCURONIUM BROMIDE 10 MG/ML 5 ML VIAL IV ONE (14:20)
[2021-04-09] MEDS ORDERED: LIDOCAINE 2% 2 ML VIAL/AMP(20MG/ML) INFIL ONE (14:20)
[2021-04-09] MEDS ORDERED: ONDANSETRON INJ 2 MG/ML 2 ML VIAL ONE ×2 (14:20→15:12)
[2021-04-09] MEDS ORDERED: fentaNYL citrate 100 MCG/2 ML VIAL ONE ×2 (14:21→14:53)
[2021-04-09] MEDS ORDERED: GLYCOPYRROLATE 0.2 MG/ML VIAL ONE (15:20)
[2021-04-09] MEDS ORDERED: NEOSTIGMINE METHYLSULFATE 1 MG/ML 10ML VIAL ONE (15:20)
[2021-04-09] MEDS ORDERED: ACETAMINOPHEN SUSP 325 MG/10.15 ML UDC PO PRN (16:06)
[2021-04-09] MEDS ORDERED: LORazepam 1 MG/2 ML VIAL IV PRN (16:06)
[2021-04-09] MEDS ORDERED: SODIUM CHLORIDE 0.65% NA SOLN 45 ML (OCEAN) PRN (16:06)
[2021-04-09] MEDS ORDERED: OXYMETAZOLINE 0.05% 30 ML BTL PRN (16:06)
[2021-04-09] MEDS: fentaNYL citrate 100 MCG/2 ML VIAL IV PRN ×4 (16:10→16:35)
--- NOTE | 2021-04-09 16:17 | Operative Report ---
PG Post Operative Report Pre & Post Diagnosis Operation Date: 04/09/21 14:10 Pre-Op Diagnosis: obstructive sleep apnea, enlarged tonsils and adenoids, nasal septal deviation Post-Op Diagnosis: obstructive sleep apnea, enlarged tonsils and adenoids, nasal septal deviation I identified the patient and participated in the time-out.: Yes Procedure Operation Date: 04/09/21 14:10 Actual Procedures p tonsillectomy, Uvulopalatoplasty - Fawn Martin MD s Septoplasty, Celon Turbinates - Fawn Martin MD Surgeon Fawn Martin MD Coremaker Pipe None Estimated Blood Loss 60 Findings Consistent with Post-Op Diagnosis Large tonsils, minimal to no adenoids, and septal deviation left Specimens Tonsils Drains None Complications None Indications Sleep apnea and nasal obstruction with septal deviation left Description of Procedure She was brought to the operating room, properly identified, prepped and draped in usual sterile manner after general endotracheal anesthesia. The nose was decongested using topical solution of 4 cc of 4% Xylocaine with 1 cc of epinephrine on cottonoid pledgets. Injection 2% Xylocaine with 1000 strength epinephrine was also used. Radiofrequency volume reduction of the inferior turbinates was performed using the celon machine creating 5 lesions in each inferior turbinate with the setting a #18. The inferior turbinates were fractured laterally. Left hemitransfixion incision was made and mucoperichondrial was elevated off the left side the septum. Septal cartilage was fairly from the vomer maxillary crest and posteriorly from the perpendicular plate of the ethmoid. A cartilaginous spur projecting to the left was trimmed using the 15 blade. Septal spur to the left was isolated via bilateral posterior tunnels and removed using the Cornell-Henderson rongeurs. Deviated portion of the perpendicular plate of the ethmoid was removed using the Cornell-Henderson rongeurs returning the septum to the midline. Septum was closed using continuous mattress suture of 4-0 plain gut. Mouthgag was placed in the peritonsillar area were injected with 0.5% Marcaine with 1-200,000 strength epinephrine. Soft palate was retracted using the red Franz catheter. There was minimal adenoid tissue. The tonsil was grasped with a tonsillar tenaculum and excised using the Coblation device. Hemostasis was controlled using the Coblation device. The opposite tonsil was removed in a similar manner. At this point the uvula and soft palate was trimmed of its anterior surface preserving the posterior portion of the uvula. Pharyngeal flap s were created with V cut into the palatal glossal fold and a flap cut into the palatopharyngeus fold. The flap was rotated laterally into the V cut. The uvula was sewn upon itself. All the mucosal edges were closed with continuous running 2-0 chromic sutures first on the left side and then on the right side. Pharynx was irrigated and suctioned clean. She tolerated the procedure well and was taken recovery area in satisfactory condition. I attest to the content of the Intraoperative Record and any orders documented therein. Any exceptions are noted below.
[2021-04-09] MEDS ORDERED: PROMETHAZINE HCL 12.5 MG in SODIUM CHLORIDE 0.9% 50 ML IV ONE (16:30)
[2021-04-09] MEDS ORDERED: LORazepam 0.5 MG TAB PO PRN (17:19)
[2021-04-09] MEDS ORDERED: RIZATRIPTAN BENZOATE MLT 10 MG TAB PO PRN (17:25)
--- NOTE | 2021-04-09 17:42 | Anesthesiology Progress Note ---
Date of Service April 09, 2021 Anesthesia Post Procedure Vital Signs Vital Signs: Temp Pulse Pulse Resp BP Pulse Ox 04/09/21 17:00 37.3 C 91 H 18 116/80 92 04/09/21 16:50 89 18 122/78 94 04/09/21 16:40 36.9 C 89 20 131/74 94 04/09/21 16:30 92 H 18 122/73 99 04/09/21 16:20 90 18 141/76 H 99 04/09/21 16:10 84 18 126/80 99 04/09/21 16:00 83 16 126/82 97 04/09/21 15:59 37.0 C 80 14 138/80 97 04/09/21 12:45 36.7 C 103 H 20 120/80 96 Pain Intensity Throat: Pain Intensity: 8 Transfer of Care Handoff Completed per policy Notes Mental Status: alert / awake / arousable and participated in evaluation Patient Amnestic to Procedure: Yes Nausea / Vomiting: adequately controlled Pain: adequately controlled Airway Patency, RR, SpO2: stable & adequate BP & HR: stable & adequate Hydration State: stable & adequate Anesthetic Complications: no major complications apparent
[2021-04-09] MEDS: MoRPHine SULFATE 2 MG/ML CARP IV PRN ×3 (17:53→20:38)
[2021-04-09] MEDS ORDERED: metFORMIN HCL 500 MG TAB PO SCH (18:00)
[2021-04-09] MEDS: D5W AND 1/2NSS + 20MEQ KCL 20 MEQ/1,000 ML BAG IV SCH (18:09)
[2021-04-09] MEDS: busPIRone 15 MG TAB PO SCH (20:33)
[2021-04-09] MEDS ORDERED: MIRABEGRON ER 25 MG TAB PO SCH (21:00)
[2021-04-09] MEDS ORDERED: rOPINIRole HCL 0.25 MG TABLET PO SCH (21:00)
[2021-04-09] MEDS ORDERED: MONTELUKAST SODIUM 10 MG TABLET PO SCH (21:00)
[2021-04-09] MEDS ORDERED: ZOLPIDEM TARTRATE 10 MG TAB PO SCH (21:00)
[2021-04-09] MEDS ORDERED: LURASIDONE HCL 40 MG TAB PO SCH (21:00)
[2021-04-09] MEDS: MoRPHine SULFATE 4 MG/ML 1 ML CARP\\VIAL IV PRN (21:41)
[2021-04-10] MEDS: MoRPHine SULFATE 4 MG/ML 1 ML CARP\\VIAL IV PRN ×3 (00:50→08:00)
[2021-04-10] MEDS: D5W AND 1/2NSS + 20MEQ KCL 20 MEQ/1,000 ML BAG IV SCH (02:27)
--- NOTE | 2021-04-10 08:08 | Discharge Summary ---
Date of Service April 10, 2021 Admission HPI Per Admitting Provider This 45-year-old lady has obstructive sleep apnea and has been unable to wear her CPAP due to nasal obstruction. She is also a smoker. Her BMI is 41. Because of the inability to wear CPAP she requested definitive treatment. Admission Exam (Per Admitting) Constitutional + morbidly obese (BMI of 41) Eyes PERRL, conjunctivae normal, anicteric sclerae ENMT Nose: + turbinate abnormality (Hypertrophy) and + septum abnormality (Septal deviation left) Throat: + posterior oropharynx abnormality (3-4+ tonsillar hypertrophy,) and + tonsil abnormality (Sidewall collapse on supine Kidd) Neck + shortened thyromental distance and + short neck Respiratory normal respiratory effort, lungs clear to auscultation Cardiovascular RRR, no murmur, no edema Discharge Data Procedures Performed Operation Date: 04/09/21 14:10 Actual Procedures p tonsillectomy, Uvulopalatoplasty - Fawn Martin MD s Septoplasty, Celon Turbinates - Fawn Martin MD Hospital Course (1) Enlarged tonsils and adenoids: She underwent tonsillectomy with UPPP. There was minimal adenoid tissue so adenoidectomy was not performed. She did well postoperatively and able to tolerate a soft diet. Sutures intact. (2) Nasal septal deviation: Status post septoplasty, able to breathe through right nostril with packing in left nostril, instructed to use saline. Recheck with me in 2 weeks. (3) Obstructive sleep apnea, adult: Continue CPAP at home. Coding Level of Care Code None Diagnoses Enlarged tonsils and adenoids J35.3 Nasal septal deviation J34.2 Obstructive sleep apnea, adult G47.33
[2021-04-10] MEDS: busPIRone 15 MG TAB PO SCH (10:06)
== END 2021-04-10 10:06 | disposition home or self-care (01) ==
LOC: ASU 12:18 → 3W 12:18

== ENCOUNTER 2023-02-27 09:31 | Observation (INO) ==
[2023-02-27 10:17] LABS: Basophils # (auto) 0.02 K/uL (0-0.2); Basophils % (auto) 0.3 %; Eosinophils # (auto) 0.11 K/uL (0-0.50); Eosinophils % (auto) 1.7 %; Hematocrit (blood only) 33.5 % (37.0-47.0); Hemoglobin 11.7 g/dl (12.0-16.0); Immature Granulocytes # (auto) 0.02 K/uL (0.01-0.20); Immature Granulocytes % (auto) 0.3 %; Lymphocytes # (auto) 1.96 K/uL (1.2-3.4); Lymphocytes % (auto) 30.5 %; Mean Corpuscular Hemoglobin 30.1 pg (25.0-34.0); Mean Corpuscular Hgb Conc 34.9 g/dL (32.0-36.0); Mean Corpuscular Volume 86.1 fL (80.0-100.0); Monocytes # (auto) 0.37 K/uL (0.11-0.59); Monocytes % (auto) 5.8 %; Neutrophils # (auto) 3.94 K/uL (1.40-6.50); Neutrophils % (auto) 61.4 %; Platelet Count 211 K/uL (130-400); RDW Coefficient of Variation 13.4 % (11.5-14.5); Red Blood Count 3.89 M/uL (4.20-5.40); White Blood Count 6.42 K/ul (4.8-10.8)
[2023-02-27] MEDS ORDERED: ONDANSETRON INJ 2 MG/ML 2 ML VIAL IV STA (10:18)
[2023-02-27] MEDS ORDERED: KETOROLAC TROMETHAMINE 15 MG/ML VIAL IV ONE (10:18)
[2023-02-27] MEDS ORDERED: SODIUM CHLORIDE 0.9% 1000ML 1,000 ML IV ONE (10:18)
[2023-02-27] MEDS ORDERED: ALUMINUM/MAGNESIUM SUSP 30 ML UDC PO STA (10:18)
--- NOTE | 2023-02-27 10:19 | Emergency Department Note ---
Impression & Plan Acute cholecystitis, Abdominal pain ED Provider Note NAME: JAE ROSS AGE: 47 SEX: F : 1975 ARRIVES VIA: Walk-In INFORMANT: Patient ED PROVIDER(S): Maxim Lozada DO CHIEF COMPLAINT: abdominal pain HPI: Patient is a 47-year-old female who presents to the ER for periumbilical abdominal pain that radiates throughout the whole abdomen. This has been present for the past 3 to 4 days. Associated with nausea but no vomiting. She notes the pain radiates up into the chest. Denies any dysuria, urgency, or frequency. No previous abdominal surgeries. No blood in the stool. She notes that symptoms have been worsening since they initially started. She denies any exertional symptoms. Does not really change with eating or drinking. She called her PCP who referred her back in today. He she has a scope scheduled for tomorrow. PAST MEDICAL HISTORY:See Below PAST SURGICAL HISTORY:See Below FAMILY HISTORY:See Below SOCIAL HISTORY:See Below HOME MEDICATIONS:See Below ALLERGIES:See Below VITALS:See Below PHYSICAL EXAMINATION: GENERAL: Sitting up in bed, alert, well appearing, well nourished, no distress, non-toxic EYE EXAM: normal conjunctiva. OROPHARYNX:mucous membranes are moist LUNGS: Clear to auscultation. Normal chest wall mechanics HEART: no murmurs, S1 normal and S2 normal ABDOMEN: abdomen soft, acutely tender epigastric to right upper quadrant, normo- active bowel sounds, no masses, no rebound or guarding. BACK: Back is symmetrical on inspection and there is no deformity, no midline tenderness, no CVA tenderness. SKIN: no rashes and no bruising UPPER EXTREMITIES: upper extremities are grossly normal. LOWER EXTREMITIES: No pitting edema. NEURO EXAM: Normal sensorium, cranial nerves II-XII grossly intact, normal speech, no gross weakness of arms, no gross weakness of legs. MEDICAL DECISION MAKING: Patient is a 47-year-old female who presents ER for above-stated complaint. IV was established blood work was obtained. External records reviewed. Labs show no significant leukocytosis but a mild anemia 11.7. BMP with LFTs bilirubin and troponin was negative. Lipase was negative. UA was clean. COVID-negative. Ultrasound was consistent with acute cholecystitis. Discussed with Dr. Alec Chowdhury from general surgery who evaluate the patient at bedside took patient to the OR. Patient was given IV fluids, morphine, Zofran as well as Zosyn. Triage Nursing notes reviewed. Limited review of prior medical records performed Vital Signs: reviewed and remarkable for no significant abnormalities Differential diagnosis: Differential diagnoses includes but is not limited to gastritis, peptic ulcer disease, GERD, gallbladder disease, pancreatitis, small bowel obstruction, appendicitis, diverticulitis, hernia, urinary tract infection, torsion, perforation, trauma, infectious. ER treatment provided: See below Diagnostics interpreted by me include EKG and cardiac monitoring as listed below: -Cardiac Monitoring: An order was placed for continuous cardiac monitoring. The monitor shows a rate of 70 with sinus rhythm. -ECG: Sinus rhythm rate of 72 Normal axis QTc 431 No PVCs -Laboratory studies:Interpreted by me as stated above in MDM and shown below. Imaging studies: Xrays: As interpreted by me: Portable AP upright 1 view of the chest shows no focal joint Ultrasound gallbladder shows acute cholecystitis Consultation(s): As described in MDM Procedures:none Critical Care: None Past Med/Surg History Medical History Abdominal pain ADHD Stable Anxiety Stable Asthma well controlled Attention deficit disorder (ADD) Bipolar 2 disorder Cervical disc disease S/p cervical fusion- no limited ROM Cigarette smoker Complex regional pain syndrome left hand Diabetes mellitus, type 2 Hgb A1C 8.2 on 03/16/21 Fatty liver GERD (gastroesophageal reflux disease) Well controlled and stable Glaucoma Follows with eye doctor routinely History of anesthesia reaction nausea: needs zofran Hyperlipidemia IBS (irritable bowel syndrome) Insomnia (~04/09/21) Lumbar radiculopathy Spinal cord stimulator in place - educated to bring remote DOS Medical cannabis use vapes Migraine headache Morbid obesity Nasal septal deviation Nausea and vomiting after administration of anesthetic agent Obstructive sleep apnea, adult cpap nightly Peripheral neuropathy Post traumatic stress disorder Reaction, depressive, manic RLS (restless legs syndrome) Seasonal allergies Spinal cord stimulator status Trouble swallowing Vomiting Surgical History H/O section H/O hand surgery left hand surgery x6 for reconstruction and ligament/tendon repairs H/O umbilical hernia repair H/O vaginal hysterectomy with BSO History of adenoidectomy History of carpal tunnel release right History of colonoscopy History of esophagogastroduodenoscopy (EGD) History of nasal septoplasty History of nasal surgery inferior turbinate reduction History of repair of hiatal hernia History of uvulopalatopharyngoplasty History of vitrectomy bilateral Hx of umbilical hernia repair S/P cervical spinal fusion 2 levels with bone grafting. Full ROM. S/P epidural steroid injection S/P insertion of spinal cord stimulator Status post breast reduction Family History Mother Anxiety Depression Environmental allergies Asthma Allergies Sister Anxiety Depression Gallbladder disease Brother Anxiety Depression Tourette disorder Grandmother Cancer Diabetes Cardiac disorder Grandfather Cancer Diabetes Grandmother Colon cancer Father Cancer Diabetes Daughter Environmental allergies Asthma Sinus disorder Denies family history of Hearing loss No family history of adverse response to anesthesia No family history of bleeding disorder Heart disease Hypertension Stroke Social History Smoking Status: Never smoker Tobacco Type: Cigarettes Age Started Using Tobacco: 16; packs per day: 0.5; Cigarettes Per Day: 12 cigarrettes daily; Second Hand Exposure: No; Do You Dip or Chew Tobacco: No; Hx Alcohol Use: No Hx Substance Use: Yes (medical marijuana) Non-Prescribed Medications: Marijuana Substance Use Type Other:: medical marijuana use Preferred Language: Upper Sorbian Communication Ability: Effective Visual Impairment: Partially Limited Furniture Finisher Required: No Beliefs That Will Affect Care: None marital status: Current Living Situation: Family Current Living Situation Comment: spouse and daughter current occupational status: disabled How many Children do You have: 2 Feels Safe at Home: Yes Childhood Exposure to Second-Hand Smoke: Yes Diet: diabetic caffeine: Yes (tea) during the past year weight has: decreased > 10 lbs Dental Care, Regularly: Yes Physical Activity Frequency: Does not Exercise Seatbelt Use: always Assistive Devices: None Allergies Allergies Allergy/AdvReac Type Severity Reaction Status Date / Time bupropion Allergy Intermediate HIVES Verified 02/27/23 13:58 escitalopram Allergy Intermediate HIVES Verified 02/27/23 13:58 grass pollen Allergy Intermediate sinus Verified 02/27/23 13:58 congestion house dust mite Allergy Intermediate sinus Verified 02/27/23 13:58 congestion Corticosteroids AdvReac Severe GLACOMA Verified 02/27/23 13:58 (Glucocorticoids) clarithromycin AdvReac Mild GI UPSET Verified 02/27/23 13:58 topiramate AdvReac Mild INDUCED Verified 02/27/23 13:58 GLAUCOMA Home Meds Home Medications Medication Instructions Recorded Confirmed lemborexant 10 mg tablet (Dayvigo) 10 mg PO HS 02/23/22 02/17/23 prazosin 1 mg capsule 3 mg PO QPM 06/29/22 02/17/23 ropinirole 0.5 mg tablet 1 mg PO QPM 06/29/22 02/17/23 azelastine 137 mcg (0.1 %) nasal 2 spray intranasal BID 07/14/22 02/17/23 spray aerosol umeclidinium 62.5 mcg-vilanterol 1 inh inhalation QAM 07/14/22 02/17/23 25 mcg/actuation powdr for inhalation (Anoro Ellipta) alprazolam 0.5 mg tablet (Xanax) 0.5 mg PO TID 12/20/22 02/17/23 lamotrigine 25 mg tablet (Lamictal) 100 mg PO QPM 12/20/22 02/17/23 fenofibrate nanocrystallized 145 145 mg PO QPM 02/17/23 02/17/23 mg tablet lumateperone 42 mg capsule 42 mg PO QAM 02/17/23 02/17/23 (Caplyta) ondansetron HCl 4 mg tablet 4 mg PO Q8H PRN Nausea 02/17/23 02/17/23 pravastatin 20 mg tablet 20 mg PO HS 02/17/23 02/17/23 solifenacin 5 mg tablet 5 mg PO HS 02/17/23 02/17/23 vibegron 75 mg tablet (Gemtesa) 75 mg PO QPM 02/17/23 02/17/23 Previous Rx's Medication Instructions Recorded nebulizer accessories #1 ea 10/15/20 nebulizers #1 ea 10/15/20 blood sugar diagnostic #100 ea 03/01/21 lancets #100 ea 03/01/21 flash glucose sensor (FreeStyle #1 ea 03/29/21 Maite 2 Sensor kit) levocetirizine 5 mg tablet (Xyzal) 5 mg PO QAM #90 tabs 03/15/22 montelukast 10 mg tablet 10 mg PO QPM #90 tabs 03/15/22 (Singulair) albuterol sulfate 2.5 mg/3 mL 2.5 mg (3 mL) inhalation Q6H PRN 04/28/22 (0.083 %) solution for nebulization sob #75 mL albuterol sulfate 90 mcg/actuation 2 puff inhalation Q4H PRN 05/04/22 aerosol inhaler shortness of breath or wheezing #18 grams RIGHT WRIST BRACE #1 ea 11/02/22 omeprazole 40 mg capsule,delayed 40 mg PO BID #60 caps 12/26/22 release rizatriptan 10 mg disintegrating 10 mg PO UD PRN migraines #14 tabs 01/03/23 tablet (Maxalt-LOCKSTITCH WAISTBAND SETTER) carisoprodol 350 mg tablet (Soma) 350 mg PO QID PRN muscle pain #120 02/06/23 tabs peg 3350-electrolytes 236 240 ml PO .COMPLEX #4,000 mL 02/07/23 gram-22.74 gram-6.74 gram-5.86 gram solution (Golytely) semaglutide 1 mg/dose (2 mg/1.5 1 mg (0.75 mL) subcut .weekly #3 mL 02/10/23 mL) subcutaneous pen injector potassium chloride 8 mEq 8 meq PO DAILY #30 tabs 02/12/23 tablet,extended release (Klor-Con) semaglutide 0.25 mg or 0.5 mg (2 0.5 mg (0.8 mL) subcut .weekly #3 02/24/23 mg/3 mL) subcutaneous pen injector mL (Ozempic) Results & Data (ED) Vital Signs Vital Signs - 24 hr 02/27/23 09:36 02/27/23 09:53 02/27/23 09:48 Temperature 36.7 C Temperature Source Temporal Artery Scan Pulse Rate 83 70 69 Pulse Rate [Apical] Pulse Rate from SpO2 Sensor Pulse Rhythm [Apical] Respiratory Rate 17 Respiratory Effort / Characteristics Non-Labored Spontaneous Respiratory Depth Normal Respiratory Pattern Regular Blood Pressure 116/78 Blood Pressure [Left Arm] Blood Pressure Mean 90 Blood Pressure Mean [Left Arm] Blood Pressure Position Sitting Blood Pressure Position [Left Arm] Pulse Oximetry 99 Oxygen Delivery Method Room Air Sepsis Recent Fever Within 48 Hours No Sepsis New/Unexplained Change in Mental Status N/A Sepsis Action Taken by Nursing No Action Required 02/27/23 09:57 02/27/23 10:00 02/27/23 10:16 Temperature Temperature Source Pulse Rate 75 86 81 Pulse Rate [Apical] Pulse Rate from SpO2 Sensor 76 85 Pulse Rhythm [Apical] Respiratory Rate 16 16 17 Respiratory Effort / Characteristics Respiratory Depth Respiratory Pattern Blood Pressure 114/72 Blood Pressure [Left Arm] Blood Pressure Mean 86 Blood Pressure Mean [Left Arm] Blood Pressure Position Blood Pressure Position [Left Arm] Pulse Oximetry 97 97 Oxygen Delivery Method Sepsis Recent Fever Within 48 Hours Sepsis New/Unexplained Change in Mental Status Sepsis Action Taken by Nursing 02/27/23 10:17 02/27/23 10:17 02/27/23 10:30 Temperature Temperature Source Pulse Rate 76 70 Pulse Rate [Apical] Pulse Rate from SpO2 Sensor 73 70 Pulse Rhythm [Apical] Respiratory Rate 14 13 Respiratory Effort / Characteristics Respiratory Depth Respiratory Pattern Blood Pressure 122/90 164/73 H Blood Pressure [Left Arm] Blood Pressure Mean 97 103 Blood Pressure Mean [Left Arm] Blood Pressure Position Blood Pressure Position [Left Arm] Pulse Oximetry 97 95 Oxygen Delivery Method Sepsis Recent Fever Within 48 Hours Sepsis New/Unexplained Change in Mental Status Sepsis Action Taken by Nursing 02/27/23 10:45 02/27/23 12:00 02/27/23 12:15 Temperature Temperature Source Pulse Rate 71 83 84 Pulse Rate [Apical] Pulse Rate from SpO2 Sensor 70 85 82 Pulse Rhythm [Apical] Respiratory Rate 12 14 22 Respiratory Effort / Characteristics Respiratory Depth Respiratory Pattern Blood Pressure 116/61 143/82 H Blood Pressure [Left Arm] Blood Pressure Mean 79 102 Blood Pressure Mean [Left Arm] Blood Pressure Position Blood Pressure Position [Left Arm] Pulse Oximetry 94 97 98 Oxygen Delivery Method Sepsis Recent Fever Within 48 Hours Sepsis New/Unexplained Change in Mental Status Sepsis Action Taken by Nursing 02/27/23 12:30 02/27/23 12:32 02/27/23 12:45 Temperature Temperature Source Pulse Rate 60 67 66 Pulse Rate [Apical] Pulse Rate from SpO2 Sensor 59 L 66 69 Pulse Rhythm [Apical] Respiratory Rate 14 18 20 Respiratory Effort / Characteristics Respiratory Depth Respiratory Pattern Blood Pressure 103/47 L Blood Pressure [Left Arm] Blood Pressure Mean 65 Blood Pressure Mean [Left Arm] Blood Pressure Position Blood Pressure Position [Left Arm] Pulse Oximetry 99 98 96 Oxygen Delivery Method Sepsis Recent Fever Within 48 Hours Sepsis New/Unexplained Change in Mental Status Sepsis Action Taken by Nursing 02/27/23 13:00 02/27/23 13:04 02/27/23 13:15 Temperature Temperature Source Pulse Rate 74 70 74 Pulse Rate [Apical] Pulse Rate from SpO2 Sensor 73 70 72 Pulse Rhythm [Apical] Respiratory Rate 16 18 14 Respiratory Effort / Characteristics Respiratory Depth Respiratory Pattern Blood Pressure 96/69 L 104/64 Blood Pressure [Left Arm] Blood Pressure Mean 78 77 Blood Pressure Mean [Left Arm] Blood Pressure Position Blood Pressure Position [Left Arm] Pulse Oximetry 95 96 96 Oxygen Delivery Method Sepsis Recent Fever Within 48 Hours Sepsis New/Unexplained Change in Mental Status Sepsis Action Taken by Nursing 02/27/23 13:47 02/27/23 13:48 Temperature 36.6 C Temperature Source Oral Pulse Rate 69 Pulse Rate [Apical] 63 Pulse Rate from SpO2 Sensor Pulse Rhythm [Apical] Regular Respiratory Rate 20 18 Respiratory Effort / Characteristics Non-Labored Spontaneous Normal for Patient Respiratory Depth Normal Respiratory Pattern Regular Blood Pressure Blood Pressure [Left Arm] 115/71 Blood Pressure Mean Blood Pressure Mean [Left Arm] 85 Blood Pressure Position Blood Pressure Position [Left Arm] Semi-fowlers Pulse Oximetry 96 98 Oxygen Delivery Method Room Air Room Air Sepsis Recent Fever Within 48 Hours Sepsis New/Unexplained Change in Mental Status Sepsis Action Taken by Nursing Laboratory Data 02/27/23 09:55 02/27/23 09:55 Lab Results 02/27/23 02/27/23 02/27/23 Range/Units 09:55 09:55 12:04 WBC 6.42 (4.8-10.8) K/ul RBC 3.89 L (4.20-5.40) M/uL Hgb 11.7 L (12.0-16.0) g/dl Hct 33.5 L (37.0-47.0) % MCV 86.1 (80.0-100.0) fL MCH 30.1 (25.0-34.0) pg MCHC 34.9 (32.0-36.0) g/dL RDW Std Deviation 42.0 (36.4-46.3) fL RDW Coeff of Felix 13.4 (11.5-14.5) % Plt Count 211 (130-400) K/uL MPV 11.0 (9.4-12.4) fL Immature Gran % (Auto) 0.3 % Neut % (Auto) 61.4 % Lymph % (Auto) 30.5 % [place] % (Auto) 5.8 % Eos % (Auto) 1.7 % Baso % (Auto) 0.3 % Neut # (Auto) 3.94 (1.40-6.50) K/uL Lymph # (Auto) 1.96 (1.2-3.4) K/uL [place] # (Auto) 0.37 (0.11-0.59) K/uL Eos # (Auto) 0.11 (0-0.50) K/uL Baso # (Auto) 0.02 (0-0.2) K/uL Immature Gran # (Auto) 0.02 (0.01-0.20) K/uL Sodium 139 (136-145) mmol/L Potassium 3.5 (3.5-5.1) mmol/L Chloride 107 (98-107) mmol/L Carbon Dioxide 23 (21-32) mmol/L Anion Gap 9 (3-11) BUN 4 L (6-23) mg/dl Creatinine 0.68 (0.6-1.2) mg/dl Est Cr Clr Drug Dosing 89.5 ml/min Est GFR ( Amer) 122.4 ml/min Est GFR (Non-Af Amer) 105.6 ml/min BUN/Creatinine Ratio 5.9 L (10-20) Glucose 113 H (70-99(Fasting)) mg/dl Calcium 9.1 (8.6-10.3) mg/dl Total Bilirubin 0.4 (0.2-1.0) mg/dl AST 33 (13-39) U/L ALT 17 (7-52) U/L Alkaline Phosphatase 55 (34-104) U/L Troponin I High Sens < 2.3 (0-14) pg/ml Total Protein 6.9 (6.0-8.3) gm/dl Albumin 4.1 (3.4-5.0) gm/dl Globulin 2.8 (2.5-4.0) gm/dl Albumin/Globulin Ratio 1.5 (0.9-2) Lipase 61 (11-82) U/L Urine Color Urine Appearance (Clear) Urine pH (4.5-7.5) Ur Specific [place] (1.000-1.030) Urine Protein (Negative) Urine Glucose (UA) (Negative) Urine Ketones (Negative) Urine Blood (Negative) Urine Nitrite (Negative) Urine Bilirubin (Negative) Urine Urobilinogen (Negative) Ur Leukocyte Esterase (Negative) SARS-CoV-2, RNA, NAAT NEGATIVE (NEGATIVE) 02/27/23 02/27/23 Range/Units 12:24 Unknown WBC (4.8-10.8) K/ul RBC (4.20-5.40) M/uL Hgb (12.0-16.0) g/dl Hct (37.0-47.0) % MCV (80.0-100.0) fL MCH (25.0-34.0) pg MCHC (32.0-36.0) g/dL RDW Std Deviation (36.4-46.3) fL RDW Coeff of Felix (11.5-14.5) % Plt Count (130-400) K/uL MPV (9.4-12.4) fL Immature Gran % (Auto) % Neut % (Auto) % Lymph % (Auto) % [place] % (Auto) % Eos % (Auto) % Baso % (Auto) % Neut # (Auto) (1.40-6.50) K/uL Lymph # (Auto) (1.2-3.4) K/uL [place] # (Auto) (0.11-0.59) K/uL Eos # (Auto) (0-0.50) K/uL Baso # (Auto) (0-0.2) K/uL Immature Gran # (Auto) (0.01-0.20) K/uL Sodium (136-145) mmol/L Potassium (3.5-5.1) mmol/L Chloride (98-107) mmol/L Carbon Dioxide (21-32) mmol/L Anion Gap (3-11) BUN (6-23) mg/dl Creatinine (0.6-1.2) mg/dl Est Cr Clr Drug Dosing ml/min Est GFR ( Amer) ml/min Est GFR (Non-Af Amer) ml/min BUN/Creatinine Ratio (10-20) Glucose (70-99(Fasting)) mg/dl Calcium (8.6-10.3) mg/dl Total Bilirubin (0.2-1.0) mg/dl AST (13-39) U/L ALT (7-52) U/L Alkaline Phosphatase (34-104) U/L Troponin I High Sens (0-14) pg/ml Total Protein (6.0-8.3) gm/dl Albumin (3.4-5.0) gm/dl Globulin (2.5-4.0) gm/dl Albumin/Globulin Ratio (0.9-2) Lipase (11-82) U/L Urine Color Yellow Urine Appearance Clear (Clear) Urine pH 8.0 H (4.5-7.5) Ur Specific [place] 1.006 (1.000-1.030) Urine Protein Negative (Negative) Urine Glucose (UA) Negative (Negative) Urine Ketones Negative (Negative) Urine Blood Negative (Negative) Urine Nitrite Negative (Negative) Urine Bilirubin Negative (Negative) Urine Urobilinogen Negative (Negative) Ur Leukocyte Esterase Negative (Negative) SARS-CoV-2, RNA, NAAT NEGATIVE (NEGATIVE) Administered Medications Discontinued Medications Al Hydrox/Mg Hydrox/Simethicone (Aluminum/Magnesium Susp 30 Ml Udc) 15 ml PO NOW STA Stop: 02/27/23 10:19 Last Admin: 02/27/23 10:25 Dose: 15 ml Documented By: TRINIDAD Sodium Chloride (Nss 1000ml) 1,000 mls @ 999 mls/hr IV .Q1H1M ONE Stop: 02/27/23 11:18 Last Admin: 02/27/23 10:25 Dose: 999 mls/hr Documented By: TRINIDAD Piperacillin Sod/Tazobactam (Sod 4.5 gm/ Dextrose) 120 mls @ 200 mls/hr IV NOW ONE; Protocol Stop: 02/27/23 12:24 Last Admin: 02/27/23 12:17 Dose: Not Given Documented By: MARIA M Ketorolac Tromethamine (Ketorolac Tromethamine 15 Mg/Ml Vial) 15 mg IV NOW ONE Stop: 02/27/23 10:19 Last Admin: 02/27/23 10:25 Dose: 15 mg Documented By: TRINIDAD Morphine Sulfate (Morphine Sulfate 10 Mg/Ml Carp/Vial) 6 mg IV NOW STA Stop: 02/27/23 11:50 Last Admin: 02/27/23 12:10 Dose: 6 mg Documented By: MARIA M Ondansetron HCl (Ondansetron Inj 2 Mg/Ml 2 Ml Vial) 4 mg IV NOW STA Stop: 02/27/23 10:19 Last Admin: 02/27/23 10:25 Dose: 4 mg Documented By: TRINIDAD Piperacillin Sod/Tazobactam Sod (Piperacillin/Tazobactam 4.5 Gm/120ml D5w) Confirm Administered Dose 4.5 gm IV .Passbox-BeiZ ONE Stop: 02/27/23 12:11 Last Admin: 02/27/23 12:17 Dose: 4.5 gm Documented By: Admin: 02/27/23 12:16 Dose: Not Given Documented By: [facility] Imaging Data Radiologist's Impression: Chest X-Ray 02/27/23 10:04 SINGLE VIEW CHEST CLINICAL HISTORY: Atypical chest pain. FINDINGS: An AP, portable, upright chest radiograph is obtained. No prior studies are available for comparison at the time of dictation. The cardiomediastinal silhouette is unremarkable. The lungs and pleural spaces are clear. No pneumothorax is seen. The bony thorax is grossly intact. End of the lead projects over the midthoracic spine. Fusion hardware is seen in the lower cervical spine. IMPRESSION: No active disease in the chest. ACT 112: Negative or not required by law. Electronically signed by: Gabe Herbert M.D. 02/27/2023 11:47 AM Gallbladder Ultrasound 02/27/23 10:18 US gallbladder CLINICAL HISTORY: epigastric abd pain TECHNIQUE: Multiple real-time sonographic images of the right upper quadrant were obtained. Comparison: Comparison is made to CT abdomen pelvis 02/25/2023 FINDINGS: Hepatomegaly is seen measuring 20.5 cm. No focal mass lesions are seen. No intrahepatic ductal dilatation is seen. Mild gallbladder wall thickening is seen with the wall measuring approximately 3.5 cm. No pericholecystic fluid is seen. A sonographic Mack's sign was elicited by the belt picker. The common duct measures 0.2 cm in diameter at the level of the hepatic artery. The distal pancreas is not visualized due to overlying bowel gas. The visualized portions of the pancreas are unremarkable. The right kidney shows normal echogenicity, cortical thickness and renal conto ur. The right kidney shows no evidence of hydronephrosis or mass. No ascites or free fluid is seen in Mayer's pouch. IMPRESSION: Findings are suspicious for acute cholecystectomy with positive Mack's sign and mild prominence of the gallbladder wall. Is clinical uncertainty remains, HIDA scan can be performed. ACT 112: Negative or not required by law. Electronically signed by: Pankaj Arzate M.D. 02/27/2023 11:35 AM Discharge Plan Visit Data Chief Complaint: Chest Pain Stated Complaint: CHEST PAIN;PAIN IN BACK;DIZZINESS ED Provider: Maxim Lozada Discharge Problem: Acute cholecystitis, Abdominal pain Patient Disposition: Admitted As Inpatient Discharge Instructions Interventions: ED Discharge Assessment Last Done: 02/27/23 13:48 Forms Stand Alone Forms: [employer] Prescriptions Prescriptions: No Action (DME) lancets Misc See Rx Instructions .ROUTE .MEDSUPPLY Qty: 100 5RF Rx Instructions: MICROLET lancets, check once daily As directed DX:E11.9 (DME) blood sugar diagnostic Strip See Rx Instructions .ROUTE .MEDSUPPLY Qty: 100 5RF Rx Instructions: Contour test strips,check once daily As directedDX:E11.9 (DME) FreeStyle Maite 2 Sensor Kit See Rx Instructions .Route Qty: 1 0RF Rx Instructions: As directed DX:E11.9 levocetirizine [Xyzal] 5 mg tablet 5 mg PO QAM Qty: 90 3RF montelukast [Singulair] 10 mg tablet 10 mg PO QPM Qty: 90 3RF albuterol sulfate 2.5 mg /3 mL (0.083 %) solution for nebulization 2.5 mg inhalation Q6H PRN (Reason: sob) Qty: 75 0RF albuterol sulfate 90 mcg/actuation HFA aerosol inhaler 2 puff inhalation Q4H PRN (Reason: shortness of breath or wheezing) Qty: 18 3RF rizatriptan [Maxalt-LOCKSTITCH WAISTBAND SETTER] 10 mg tablet,disintegrating 10 mg PO UD PRN (Reason: migraines) Qty: 14 3RF Rx Instructions: take 1 tab at onset of headache; if no relief may repeat 1 tab after at least 2 hrs; max = 2 tabs/24 hr PO carisoprodol [Soma] 350 mg tablet 350 mg PO QID PRN (Reason: muscle pain) Qty: 120 0RF Rx Instructions: approved, effective 02/15/21 peg 3350-electrolytes [Golytely] 236-22.74-6.74 -5.86 gram recon soln 240 ml PO .COMPLEX Qty: 4000 0RF Rx Instructions: 240 mL PO take as directed per split dose instructions semaglutide 1 mg/dose (2 mg/1.5 mL) pen injector 1 mg subcut .weekly Qty: 3 0RF potassium chloride [Klor-Con 8] 8 mEq tablet extended release 8 meq PO DAILY Qty: 30 2RF Ozempic 0.25 mg or 0.5 mg (2 mg/3 mL) pen injector 0.5 mg subcut .weekly Qty: 3 0RF azelastine 137 mcg (0.1 %) aerosol,spray 2 spray intranasal BID Rx Instructions: administer into each nostril Anoro Ellipta 62.5-25 mcg/actuation blister with device 1 inh inhalation QAM (DME) nebulizer accessories Kit See Rx Instructions .ROUTE .MEDSUPPLY Qty: 1 0RF Rx Instructions: As directed (DME) nebulizers [facility] See Rx Instructions .ROUTE .MEDSUPPLY Qty: 1 0RF Rx Instructions: As directed Dayvigo 10 mg tablet 10 mg PO HS prazosin 1 mg capsule 3 mg PO QPM (DME) RIGHT WRIST BRACE See Rx Instructions .Route .MEDSUPPLY Qty: 1 0RF Rx Instructions: As directed omeprazole 40 mg capsule,delayed release(DR/EC) 40 mg PO BID Qty: 60 5RF lamotrigine [Lamictal] 25 mg tablet 100 mg PO QPM ropinirole 0.5 mg tablet 1 mg PO QPM Rx Instructions: 1 in pm PO daily in the evening; alprazolam [Xanax] 0.5 mg tablet 0.5 mg PO TID ondansetron HCl 4 mg tablet 4 mg PO Q8H PRN (Reason: Nausea) pravastatin 20 mg tablet 20 mg PO HS solifenacin 5 mg tablet 5 mg PO HS fenofibrate nanocrystallized 145 mg tablet 145 mg PO QPM Caplyta 42 mg capsule 42 mg PO QAM Gemtesa 75 mg tablet 75 mg PO QPM Referrals Referrals: Luís Paul DO [Primary Care Provider] -
[2023-02-27 10:33] LABS: Alanine Aminotransferase 17 U/L (7-52); Albumin Globulin Ratio 1.5 (0.9-2); Albumin Level 4.1 gm/dl (3.4-5.0); Alkaline Phosphatase 55 U/L (34-104); Anion Gap 9 (3-11); Aspartate Aminotransferase 33 U/L (13-39); BUN Creatinine Ratio 5.9 (10-20); Bilirubin,Total 0.4 mg/dl (0.2-1.0); Blood Urea Nitrogen 4 mg/dl (6-23); Calcium 9.1 mg/dl (8.6-10.3); Carbon Dioxide 23 mmol/L (21-32); Chloride 107 mmol/L (98-107); Creatinine Clr Calc Pharmacy 89.5 ml/min; Est GFR (African American) 122.4 ml/min; Est GFR (Non-African American) 105.6 ml/min; Globulin 2.8 gm/dl (2.5-4.0); Glucose 113 mg/dl (70-99(Fasting)); Lipase 61 U/L (11-82); Potassium 3.5 mmol/L (3.5-5.1); Sodium 139 mmol/L (136-145); Total Protein 6.9 gm/dl (6.0-8.3)
[2023-02-27 10:39] LABS: Troponin I High Sensitivity < 2.3 pg/ml (0-14)
--- NOTE | 2023-02-27 11:37 | Ultrasound Report ---
US gallbladder CLINICAL HISTORY: epigastric abd pain TECHNIQUE: Multiple real-time sonographic images of the right upper quadrant were obtained. Comparison: Comparison is made to CT abdomen pelvis 02/25/2023 FINDINGS: Hepatomegaly is seen measuring 20.5 cm. No focal mass lesions are seen. No intrahepatic ductal dil atation is seen. Mild gallbladder wall thickening is seen with the wall measuring approximately 3.5 cm. No pericholecystic fluid is seen. A sonographic Mack's sign was elicited by the stockroom coordinator. The common duct measures 0.2 cm in diameter at the level of the hepatic artery. The distal pancreas is not visualized due to overlying bowel gas. The visualized portions of the pancreas are unremarkab le. The right kidney shows normal echogenicity, cortical thickness and renal contour. The right kidney sh ows no evidence of hydronephrosis or mass. No ascites or free fluid is seen in Mayer's pouch. IMPRESSION: Findings are suspicious for acute cholecystectomy with positive Mack's sign and mild prominence of the gallbladder wall. Is clinical uncertainty remains, HIDA scan can be performed. ACT 112: Negative or not required by law. Electronically signed by: Pankaj Arzate M.D. 02/27/2023 11:35 AM
[2023-02-27] MEDS ORDERED: PIPERACILLIN/TAZOBACTAM 4.5 GM in DEXTROSE 5% 100 ML IV ONE (11:49)
[2023-02-27] MEDS ORDERED: MoRPHine SULFATE 10 MG/ML CARP/VIAL IV STA (11:49)
--- NOTE | 2023-02-27 11:50 | XRay Report ---
SINGLE VIEW CHEST CLINICAL HISTORY: Atypical chest pain. FINDINGS: An AP, portable, upright chest radiograph is obtained. No prior studies are available for c omparison at the time of dictation. The cardiomediastinal silhouette is unremarkable. The lungs and p leural spaces are clear. No pneumothorax is seen. The bony thorax is grossly intact. End of the lead projects over the midthoracic spine. Fusion hardware is seen in the lower cervical spine. IMPRESSION: No active disease in the chest. ACT 112: Negative or not required by law. Electronically signed by: Gabe Herbert M.D. 02/27/2023 11:47 AM
[2023-02-27] MEDS: PIPERACILLIN/TAZOBACTAM 4.5 GM/120ML D5W IV ONE ×2 (12:16→12:17)
--- NOTE | 2023-02-27 12:34 | Surgery Consultation ---
Date of Consultation February 27, 2023 Assessment & Plan (1) Abdominal pain: 47 year old female present to [facility] ER with complaint of abdominal pain. Patient reports pain started 02/21/23, and is associated with nausea, vomiting, diarrhea with decreased appetite. Pain is generalized to abdomen but worse over periumb ilical area and RUQ. Patient denies pain is associated with eating certain foods. Last time she ate was 3 baby carrots on 02/26/23 in the evening and last drank 02/27/23 sips of Sprite. Past surgical history includes umbilical hernia repair and a total hysterectomy. WBC 6.4, LFT wnl. We will proceed with surgical intervention for laparoscopic cholecystectomy /possible open. US gallbladder CLINICAL HISTORY: epigastric abd pain TECHNIQUE: Multiple real-time sonographic images of the right upper quadrant were obtained. Comparison: Comparison is made to CT abdomen pelvis 02/25/2023 FINDINGS: Hepatomegaly is seen measuring 20.5 cm. No focal mass lesions are seen. No intrahepatic ductal dilatation is seen. Mild gallbladder wall thickening is seen with the wall measuring approximately 3.5 cm. No pericholecystic fluid is seen. A sonographic Mack's sign was elicited by the helmet coverer. The common duct measures 0.2 cm in diameter at the level of the hepatic artery. The distal pancreas is not visualized due to overlying bowel gas. The visualized portions of the pancreas are unremarkable. The right kidney shows normal echogenicity, cortical thickness and renal co ntour. The right kidney shows no evidence of hydronephrosis or mass. No ascites or free fluid is seen in Mayer's pouch. IMPRESSION: Findings are suspicious for acute cholecystectomy with positive Mack's sign and mild prominence of the gallbladder wall. Is clinical uncertainty remains, HIDA scan can be performed. ACT 112: Negative or not required by law. Electronically signed by: Pankaj Arzate M.D. 02/27/2023 11:35 AM Supervising Physician Co-Signing Physician Notes Dr. Chowdhurypatient seen in the emergency room, agree with assessment and plan above Likely for laparoscopic cholecystectomy today History of Present Illness Reason for Consultation: Abdominal Pain History of Present Illness 47 year old female present to [facility] ER with complaint of abdominal pain. Patient reports pain started 02/21/23 and became un-tolerable on 02/25/23 which prompted her to come to the ER on 02/25/23. At that time patient under went an abdominal CT scan that showed no acute findings. Patient was then discharged home. Pain became worse at which point patient presented again to the ER 02/28/24. Patient reports nausea, vomiting, diarrhea with decreased appetite. Pain is generalized to abdomen but worse over periumbilical area and RUQ. Allergies Allergy/AdvReac Type Severity Reaction Status Date / Time bupropion Allergy Intermediate HIVES Verified 02/17/23 12:40 escitalopram Allergy Intermediate HIVES Verified 02/17/23 12:40 grass pollen Allergy Intermediate sinus Verified 02/17/23 12:40 congestion house dust mite Allergy Intermediate sinus Verified 02/17/23 12:40 congestion Corticosteroids AdvReac Severe GLACOMA Verified 02/17/23 12:40 (Glucocorticoids) clarithromycin AdvReac Mild GI UPSET Verified 02/17/23 12:40 topiramate AdvReac Mild INDUCED Verified 02/17/23 12:40 GLAUCOMA Home Medications Medication Instructions Recorded Confirmed Type nebulizer accessories #1 ea 10/15/20 01/20/23 Rx nebulizers #1 ea 10/15/20 01/20/23 Rx blood sugar diagnostic #100 ea 03/01/21 01/20/23 Rx lancets #100 ea 03/01/21 01/20/23 Rx flash glucose sensor (FreeStyle #1 ea 03/29/21 01/20/23 Rx Maite 2 Sensor kit) lemborexant 10 mg tablet (Dayvigo) 10 mg PO HS 02/23/22 02/17/23 History levocetirizine 5 mg tablet (Xyzal) 5 mg PO QAM #90 tabs 03/15/22 02/17/23 Rx montelukast 10 mg tablet 10 mg PO QPM #90 tabs 03/15/22 02/17/23 Rx (Singulair) albuterol sulfate 2.5 mg/3 mL 2.5 mg (3 mL) inhalation Q6H PRN 04/28/22 02/17/23 Rx (0.083 %) solution for nebulization sob #75 mL albuterol sulfate 90 mcg/actuation 2 puff inhalation Q4H PRN 05/04/22 02/17/23 Rx aerosol inhaler shortness of breath or wheezing #18 grams prazosin 1 mg capsule 3 mg PO QPM 06/29/22 02/17/23 History ropinirole 0.5 mg tablet 1 mg PO QPM 06/29/22 02/17/23 History azelastine 137 mcg (0.1 %) nasal 2 spray intranasal BID 07/14/22 02/17/23 History spray aerosol umeclidinium 62.5 mcg-vilanterol 1 inh inhalation QAM 07/14/22 02/17/23 History 25 mcg/actuation powdr for inhalation (Anoro Ellipta) RIGHT WRIST BRACE #1 ea 11/02/22 01/20/23 Rx alprazolam 0.5 mg tablet (Xanax) 0.5 mg PO TID 12/20/22 02/17/23 History lamotrigine 25 mg tablet (Lamictal) 100 mg PO QPM 12/20/22 02/17/23 History omeprazole 40 mg capsule,delayed 40 mg PO BID #60 caps 12/26/22 02/17/23 Rx release rizatriptan 10 mg disintegrating 10 mg PO UD PRN migraines #14 tabs 01/03/23 02/17/23 Rx tablet (Maxalt-STUDENT AMBASSADOR) carisoprodol 350 mg tablet (Soma) 350 mg PO QID PRN muscle pain #120 02/06/23 02/17/23 Rx tabs peg 3350-electrolytes 236 240 ml PO .COMPLEX #4,000 mL 02/07/23 Rx gram-22.74 gram-6.74 gram-5.86 gram solution (Golytely) semaglutide 1 mg/dose (2 mg/1.5 1 mg (0.75 mL) subcut .weekly #3 mL 02/10/23 02/17/23 Rx mL) subcutaneous pen injector potassium chloride 8 mEq 8 meq PO DAILY #30 tabs 02/12/23 02/17/23 Rx tablet,extended release (Klor-Con) fenofibrate nanocrystallized 145 145 mg PO QPM 02/17/23 02/17/23 History mg tablet lumateperone 42 mg capsule 42 mg PO QAM 02/17/23 02/17/23 History (Caplyta) ondansetron HCl 4 mg tablet 4 mg PO Q8H PRN Nausea 02/17/23 02/17/23 History pravastatin 20 mg tablet 20 mg PO HS 02/17/23 02/17/23 History solifenacin 5 mg tablet 5 mg PO HS 02/17/23 02/17/23 History vibegron 75 mg tablet (Gemtesa) 75 mg PO QPM 02/17/23 02/17/23 History semaglutide 0.25 mg or 0.5 mg (2 0.5 mg (0.8 mL) subcut .weekly #3 02/24/23 Rx mg/3 mL) subcutaneous pen injector mL (Ozempic) Patient History Medical History Abdominal pain ADHD Stable Anxiety Stable Asthma well controlled Attention deficit disorder (ADD) Bipolar 2 disorder Cervical disc disease S/p cervical fusion- no limited ROM Cigarette smoker Complex regional pain syndrome left hand Diabetes mellitus, type 2 Hgb A1C 8.2 on 03/16/21 Fatty liver GERD (gastroesophageal reflux disease) Well controlled and stable Glaucoma Follows with eye doctor routinely History of anesthesia reaction nausea: needs zofran Hyperlipidemia IBS (irritable bowel syndrome) Insomnia (~04/09/21) Lumbar radiculopathy Spinal cord stimulator in place - educated to bring remote DOS Medical cannabis use vapes Migraine headache Morbid obesity Nasal septal deviation Nausea and vomiting after administration of anesthetic agent Obstructive sleep apnea, adult cpap nightly Peripheral neuropathy Post traumatic stress disorder Reaction, depressive, manic RLS (restless legs syndrome) Seasonal allergies Spinal cord stimulator status Trouble swallowing Vomiting Surgical History H/O section H/O hand surgery left hand surgery x6 for reconstruction and ligament/tendon repairs H/O umbilical hernia repair H/O vaginal hysterectomy with BSO History of adenoidectomy History of carpal tunnel release right History of colonoscopy History of esophagogastroduodenoscopy (EGD) History of nasal septoplasty History of nasal surgery inferior turbinate reduction History of repair of hiatal hernia History of uvulopalatopharyngoplasty History of vitrectomy bilateral Hx of umbilical hernia repair S/P cervical spinal fusion 2 levels with bone grafting. Full ROM. S/P epidural steroid injection S/P insertion of spinal cord stimulator Status post breast reduction Family History Mother Anxiety Depression Environmental allergies Asthma Allergies Sister Anxiety Depression Gallbladder disease Brother Anxiety Depression Tourette disorder Grandmother Cancer Diabetes Cardiac disorder Grandfather Cancer Diabetes Grandmother Colon cancer Father Cancer Diabetes Daughter Environmental allergies Asthma Sinus disorder Denies family history of Hearing loss No family history of adverse response to anesthesia No family history of bleeding disorder Heart disease Hypertension Stroke Social History Smoking Status: Never smoker Tobacco Type: Cigarettes Age Started Using Tobacco: 16; packs per day: 0.5; Cigarettes Per Day: 12 cigarrettes daily; Second Hand Exposure: No; Do You Dip or Chew Tobacco: No; Hx Alcohol Use: No Hx Substance Use: Yes (medical marijuana) Non-Prescribed Medications: Marijuana Substance Use Type Other:: medical marijuana use Preferred Language: Guamanian Communication Ability: Effective Visual Impairment: Partially Limited Complex Director Required: No Beliefs That Will Affect Care: None marital status: Current Living Situation: Family Current Living Situation Comment: spouse and daughter current occupational status: disabled How many Children do You have: 2 Feels Safe at Home: Yes Childhood Exposure to Second-Hand Smoke: Yes Diet: diabetic caffeine: Yes (tea) during the past year weight has: decreased > 10 lbs Dental Care, Regularly: Yes Physical Activity Frequency: Does not Exercise Seatbelt Use: always Assistive Devices: None Review of Systems Review of Systems: alert/oriented, tearful Constitutional: no fever and no chills Respiratory: + dyspnea on exertion (patient reports chronic SOB with activity ) Cardiovascular: no chest pain Gastrointestinal: + abdominal pain, + nausea, + vomiting and + diarrhea/loose stools Physical Exam Constitutional: cooperative Respiratory: normal respiratory effort (speaks in full sentences) Cardiovascular: Rate/Rhythm: regular rate Gastrointestinal (Abdomen): Percussion/Palpation: + abdomen tender (patient reports pain in abdomen, worse in periumbilical area and RUQ), + guarding and abdomen soft Musculoskeletal: moves all extremities Results & Data Vital Signs (Past 12 Hours) Vital Signs Temp Pulse BP Pulse Ox O2 Del Method 02/27/23 09:53 70 02/27/23 09:36 98.1 F 83 116/78 99 Room Air
[2023-02-27 12:38] LABS: Appearance Urine Clear (Clear); Bilirubin Urine Negative (Negative); Blood Urine Negative (Negative); Color Urine Yellow; Glucose Urine UA Negative (Negative); Ketones Urine Negative (Negative); Leukocyte Esterase Urine Negative (Negative); Nitrite Urine Negative (Negative); Protein Urine Negative (Negative); Specific Gravity Urine 1.006 (1.000-1.030); Urobilinogen Urine Negative (Negative)
[2023-02-27] MEDS ORDERED: PROPOFOL IV EMULSION 10 MG/ML 20 ML VIAL IV ONE (14:09)
[2023-02-27] MEDS ORDERED: LIDOCAINE 2% 2 ML VIAL/AMP(20MG/ML) INFIL ONE (14:09)
[2023-02-27] MEDS ORDERED: DEXAMETHASONE SOD INJ 4 MG/ML VIAL ONE ×2 (14:11→14:46)
[2023-02-27] MEDS ORDERED: KETOROLAC 30 MG/ML VIAL ONE (14:11)
[2023-02-27] MEDS ORDERED: ONDANSETRON INJ 2 MG/ML 2 ML VIAL ONE ×2 (14:12→14:45)
[2023-02-27] MEDS ORDERED: ROCURONIUM BROMIDE 10 MG/ML 5 ML VIAL IV ONE ×4 (14:12)
[2023-02-27] MEDS ORDERED: ATROPINE SULFATE 0.1 MG/ML 10ML SYR IV PRN (14:13)
[2023-02-27] MEDS ORDERED: ONDANSETRON INJ 2 MG/ML 2 ML VIAL IV PRN (14:13)
[2023-02-27] MEDS ORDERED: ePHEDrine sulfate 50 MG/ML AMP IV PRN (14:13)
--- NOTE | 2023-02-27 14:13 | Anesthesiology Consultation ---
Date of Service February 27, 2023 Assessment & Plan (1) Encounter for pre-operative examination: Chart Review Chart Review: Acceptable Risk for Surgery and Patient NOT seen in Pre Admission Testing Consults Requested none History Surgery Operation Date: 02/27/23 12:40 Proposed Procedures p Laparoscopic Cholecystectomy - Hai Chowdhury MD, FACS Height/Weight Height: 4 ft 10 in Weight: 74.3 kg Allergies Allergy/AdvReac Type Severity Reaction Status Date / Time bupropion Allergy Intermediate HIVES Verified 02/27/23 13:58 escitalopram Allergy Intermediate HIVES Verified 02/27/23 13:58 grass pollen Allergy Intermediate sinus Verified 02/27/23 13:58 congestion house dust mite Allergy Intermediate sinus Verified 02/27/23 13:58 congestion Corticosteroids AdvReac Severe GLACOMA Verified 02/27/23 13:58 (Glucocorticoids) clarithromycin AdvReac Mild GI UPSET Verified 02/27/23 13:58 topiramate AdvReac Mild INDUCED Verified 02/27/23 13:58 GLAUCOMA Medications Home Medications Medication Instructions Recorded Confirmed Last Taken nebulizer accessories #1 ea 10/15/20 01/20/23 Unknown nebulizers #1 ea 10/15/20 01/20/23 Unknown blood sugar diagnostic #100 ea 03/01/21 01/20/23 Unknown lancets #100 ea 03/01/21 01/20/23 Unknown flash glucose sensor (FreeStyle #1 ea 03/29/21 01/20/23 Unknown Maite 2 Sensor kit) lemborexant 10 mg tablet (Dayvigo) 10 mg PO HS 02/23/22 02/17/23 Unknown levocetirizine 5 mg tablet (Xyzal) 5 mg PO QAM #90 tabs 03/15/22 02/17/23 Unknown montelukast 10 mg tablet 10 mg PO QPM #90 tabs 03/15/22 02/17/23 Unknown (Singulair) albuterol sulfate 2.5 mg/3 mL 2.5 mg (3 mL) inhalation Q6H PRN 04/28/22 02/17/23 Unknown (0.083 %) solution for nebulization sob #75 mL albuterol sulfate 90 mcg/actuation 2 puff inhalation Q4H PRN 05/04/22 02/17/23 Unknown aerosol inhaler shortness of breath or wheezing #18 grams prazosin 1 mg capsule 3 mg PO QPM 06/29/22 02/17/23 Unknown ropinirole 0.5 mg tablet 1 mg PO QPM 06/29/22 02/17/23 Unknown azelastine 137 mcg (0.1 %) nasal 2 spray intranasal BID 07/14/22 02/17/23 Unknown spray aerosol umeclidinium 62.5 mcg-vilanterol 1 inh inhalation QAM 07/14/22 02/17/23 Unknown 25 mcg/actuation powdr for inhalation (Anoro Ellipta) RIGHT WRIST BRACE #1 ea 11/02/22 01/20/23 Unknown alprazolam 0.5 mg tablet (Xanax) 0.5 mg PO TID 12/20/22 02/17/23 Unknown lamotrigine 25 mg tablet (Lamictal) 100 mg PO QPM 12/20/22 02/17/23 Unknown omeprazole 40 mg capsule,delayed 40 mg PO BID #60 caps 12/26/22 02/17/23 Unknown release rizatriptan 10 mg disintegrating 10 mg PO UD PRN migraines #14 tabs 01/03/23 02/17/23 Unknown tablet (Maxalt-BUSINESS TRAVEL CONSULTANT) carisoprodol 350 mg tablet (Soma) 350 mg PO QID PRN muscle pain #120 02/06/23 02/17/23 Unknown tabs peg 3350-electrolytes 236 240 ml PO .COMPLEX #4,000 mL 02/07/23 Unknown gram-22.74 gram-6.74 gram-5.86 gram solution (Golytely) semaglutide 1 mg/dose (2 mg/1.5 1 mg (0.75 mL) subcut .weekly #3 mL 02/10/23 02/17/23 Unknown mL) subcutaneous pen injector potassium chloride 8 mEq 8 meq PO DAILY #30 tabs 02/12/23 02/17/23 Unknown tablet,extended release (Klor-Con) fenofibrate nanocrystallized 145 145 mg PO QPM 02/17/23 02/17/23 Unknown mg tablet lumateperone 42 mg capsule 42 mg PO QAM 02/17/23 02/17/23 Unknown (Caplyta) ondansetron HCl 4 mg tablet 4 mg PO Q8H PRN Nausea 02/17/23 02/17/23 Unknown pravastatin 20 mg tablet 20 mg PO HS 02/17/23 02/17/23 Unknown solifenacin 5 mg tablet 5 mg PO HS 02/17/23 02/17/23 Unknown vibegron 75 mg tablet (Gemtesa) 75 mg PO QPM 02/17/23 02/17/23 Unknown semaglutide 0.25 mg or 0.5 mg (2 0.5 mg (0.8 mL) subcut .weekly #3 02/24/23 Unknown mg/3 mL) subcutaneous pen injector mL (Ozempic) NPO Date Last Intake of Fluids: 02/27/23 Time Last Intake of Fluids: 09:00 Last Intake of Fluids Comment: sips of sprite Date Last Intake of Solids: 02/26/23 Time Last Intake of Solids: 17:00 Past Medical History Medical History Abdominal pain ADHD Stable Anxiety Stable Asthma well controlled Attention deficit disorder (ADD) Bipolar 2 disorder Cervical disc disease S/p cervical fusion- no limited ROM Cigarette smoker Complex regional pain syndrome left hand Diabetes mellitus, type 2 Hgb A1C 8.2 on 03/16/21 Fatty liver GERD (gastroesophageal reflux disease) Well controlled and stable Glaucoma Follows with eye doctor routinely History of anesthesia reaction nausea: needs zofran Hyperlipidemia IBS (irritable bowel syndrome) Insomnia (~04/09/21) Lumbar radiculopathy Spinal cord stimulator in place - educated to bring remote DOS Medical cannabis use vapes Migraine headache Morbid obesity Nasal septal deviation Nausea and vomiting after administration of anesthetic agent Obstructive sleep apnea, adult cpap nightly Peripheral neuropathy Post traumatic stress disorder Reaction, depressive, manic RLS (restless legs syndrome) Seasonal allergies Spinal cord stimulator status Trouble swallowing Vomiting Past Family History Family History Mother Anxiety Depression Environmental allergies Asthma Allergies Sister Anxiety Depression Gallbladder disease Brother Anxiety Depression Tourette disorder Grandmother Cancer Diabetes Cardiac disorder Grandfather Cancer Diabetes Grandmother Colon cancer Father Cancer Diabetes Daughter Environmental allergies Asthma Sinus disorder Denies family history of Hearing loss No family history of adverse response to anesthesia No family history of bleeding disorder Heart disease Hypertension Stroke Past Surgical History Surgical History H/O section H/O hand surgery left hand surgery x6 for reconstruction and ligament/tendon repairs H/O umbilical hernia repair H/O vaginal hysterectomy with BSO History of adenoidectomy History of carpal tunnel release right History of colonoscopy History of esophagogastroduodenoscopy (EGD) History of nasal septoplasty History of nasal surgery inferior turbinate reduction History of repair of hiatal hernia History of uvulopalatopharyngoplasty History of vitrectomy bilateral Hx of umbilical hernia repair S/P cervical spinal fusion 2 levels with bone grafting. Full ROM. S/P epidural steroid injection S/P insertion of spinal cord stimulator Status post breast reduction Social History Smoking Status: Never smoker tobacco type: cigarettes Smoking cigarettes per day: 12 cigarrettes daily Do You Dip or Chew Tobacco: No Hx Alcohol Use: No alcohol intake frequency: holidays/special occasions only Hx Substance Use: Yes (medical marijuana) substance use type: marijuana Substance Use Type Other:: medical marijuana use Physical Exam Vital Signs Last Vital Signs Temp 97.9 F 02/27/23 13:47 Pulse 69 02/27/23 13:48 Resp 18 02/27/23 13:48 BP 115/71 02/27/23 13:47 Pulse Ox 98 02/27/23 13:48 O2 Del Method Room Air 02/27/23 13:48 Testing Laboratory Results 02/27/23 09:55 02/27/23 09:55 Urine Color Yellow 02/27/23 12:24 Urine Appearance Clear (Clear) 02/27/23 12:24 Urine pH 8.0 (4.5-7.5) H 02/27/23 12:24 Ur Specific [place] 1.006 (1.000-1.030) 02/27/23 12:24 Urine Protein Negative (Negative) 02/27/23 12:24 Urine Glucose (UA) Negative (Negative) 02/27/23 12:24 Urine Ketones Negative (Negative) 02/27/23 12:24 Urine Nitrite Negative (Negative) 02/27/23 12:24 Ur Leukocyte Esterase Negative (Negative) 02/27/23 12:24 02/27/23 12:32 POC Ur Test Pending Electrocardiogram Date: 02/27/23 Findings: + NSR @
[2023-02-27] MEDS ORDERED: NEOSTIGMINE METHYLSULFATE 1 MG/ML 10ML VIAL ONE (14:23)
[2023-02-27] MEDS ORDERED: GLYCOPYRROLATE 0.2 MG/ML VIAL ONE ×2 (14:24→15:43)
[2023-02-27] MEDS ORDERED: BUPIVACAINE 0.5 % 5 MG/1 ML MPF 30ML VIAL ONE (14:43)
[2023-02-27] MEDS ORDERED: MIDAZOLAM HCL 1 MG/ML 2ML VIAL ONE ×2 (14:46→15:56)
[2023-02-27] MEDS ORDERED: fentaNYL citrate PF 100 MCG/2 ML VIAL ONE (14:46)
--- NOTE | 2023-02-27 14:59 | Hospitalist Consultation ---
Date of Consultation February 27, 2023 Assessment & Plan (1) Acute cholecystitis: Desire is a 47-year-old female who presents with abdominal pain which began 02/21 and continued to worsen through 02/25 prompting ER evaluation, CT scan showed no acute findings patient was discharged home however she continued of worsening pain and represented 02/28/2024. Gallbladder ultrasound with findings suspicious for acute cholecystitis with a positive Mack sign. Given persistent symptoms and ultrasound findings patient was taken for lap cholecystectomy.Patient somnolent in PACU postoperatively. Medications reconciled from last PCP note and external rec. Last medication fill 02/07, 02/10, 02/13, and 02/18.Patient is actively feeling alprazolam, fenofibrate, Ozempic, carisoprodol, Dayvigo, pravastatin, kappa light, Gemtesa, prazosin 1 mg at bedtime, omeprazole, omeprazole, lamotrigine 100 mg, prazosin. Dayvigo held whi le inpatient. Prazosin held for mild hypotension, may resume if normotensive and if needed for night terrors . Omeprazole converted to Protonix. Lamotrigine continued. Cholecystitis - S/p lap cholecystectomy 02/27/2023. Uncomplicated, estimated 5 cc of blood loss. Management per surgical team Received perioperative Zosyn, extended antibiotics not indicated Trend CBC/CMP/fever curve Transient hypotension following analgesic administration, additional 500 cc IVF ordered Heparin every 12 for DVT prophylaxis GERD without esophagitis Continue Protonix for GI prophylaxis, converted from omeprazole while inpatient Type II DM Pharmacy consulted for assistance with postop management Patient is on semaglutide weekly at home Goal BSG [id number] BSG 120 at bedside, adequately controlled. Given that she is on weekly antiglycemic will defer additional insulin at this time and trend BSG's. If greater than 180 then add weight-based insulin SSI CF 60/carb ratio 20. Will defer for now and follow BSG control Hyperlipidemia Continue pravastatin 20 mg p.o. nightly COPD No PFTs available for review Continue Anoro Albuterol as needed for wheezing No wheezing postoperatively CPAP nightly as needed Anxiety/depression/insomnia Lemborexant held postop, may resume 02/28 Carisoprodol 4 times daily as needed for muscle spasm/pain may be resumed 02/28 Continue alprazolam 0.5 mg p.o. 3 times daily, patient has baseline use and is at risk of benzo withdrawal if stopped abruptly Continue lamotrigine 100 mg every afternoon Overactive bladder Continue Gemtesa DVT prophylaxis: Heparin subcu Diet low-fat, progress as tolerated per surgical team CODE STATUS: Full code (2) BMI 40.0-44.9, adult: (3) Diabetes mellitus type II, controlled: (4) COPD (chronic obstructive pulmonary disease): (5) GERD without esophagitis: History of Present Illness History of Present Illness Desire is a 47-year-old female who presents with abdominal pain which began 02/21 and continued to worsen through 02/25 prompting ER evaluation, CT scan showed no acute findings patient was discharged home however she continued of worsening pain and represented 02/28/2024. Gallbladder ultrasound with findings suspicious for acute cholecystitis with a positive Mack sign. Given persistent symptoms and ultrasound findings patient was taken for lap cholecystectomy. We are consulted for postoperative management Lab review: CXR: No acute findings No leukocytosis Hemoglobin 11.7, MCV 86. Baseline hemoglobin approximately 11.713 Admitting creatinine 0.68, no CHANELLE Admitting BSG 113, adequately controlled Lipase not elevated, no transaminitis UA is not infected appearing COVID is negative Desire is seen in the PACU postoperatively. She reports she is having mild diffuse pain in her abdomen mostly in the right upper and epigastric quadrant. No rebound tenderness. She reports she did not take her medications this morning. She reports she is not sure if she feels better, the pain she is in that was a little different from the pain she had coming in. Pain is improved following fentanyl in the PACU. Transiently hypotensive following fentanyl administration, blood pressure gradually improving now over systolic 100. Patient somewhat somnolent, denies fever/chills/sweats/chest pain/chest pressure postoperatively Medical History: Reviewed Medications: Reviewed Surgical History: Reviewed Family history: Reviewed Allergies: Reviewed Social History: Reviewed Code Status: Full code Allergies Allergy/AdvReac Type Severity Reaction Status Date / Time bupropion Allergy Intermediate HIVES Verified 02/27/23 13:58 escitalopram Allergy Intermediate HIVES Verified 02/27/23 13:58 grass pollen Allergy Intermediate sinus Verified 02/27/23 13:58 congestion house dust mite Allergy Intermediate sinus Verified 02/27/23 13:58 congestion Corticosteroids AdvReac Severe GLACOMA Verified 02/27/23 13:58 (Glucocorticoids) clarithromycin AdvReac Mild GI UPSET Verified 02/27/23 13:58 topiramate AdvReac Mild INDUCED Verified 02/27/23 13:58 GLAUCOMA Home Medications Medication Instructions Recorded Confirmed Type nebulizer accessories #1 ea 10/15/20 01/20/23 Rx nebulizers #1 ea 10/15/20 01/20/23 Rx blood sugar diagnostic #100 ea 03/01/21 01/20/23 Rx lancets #100 ea 03/01/21 01/20/23 Rx flash glucose sensor (FreeStyle #1 ea 03/29/21 01/20/23 Rx Maite 2 Sensor kit) lemborexant 10 mg tablet (Dayvigo) 10 mg PO HS 02/23/22 02/17/23 History levocetirizine 5 mg tablet (Xyzal) 5 mg PO QAM #90 tabs 03/15/22 02/17/23 Rx montelukast 10 mg tablet 10 mg PO QPM #90 tabs 03/15/22 02/17/23 Rx (Singulair) albuterol sulfate 2.5 mg/3 mL 2.5 mg (3 mL) inhalation Q6H PRN 04/28/22 02/17/23 Rx (0.083 %) solution for nebulization sob #75 mL albuterol sulfate 90 mcg/actuation 2 puff inhalation Q4H PRN 05/04/22 02/17/23 Rx aerosol inhaler shortness of breath or wheezing #18 grams prazosin 1 mg capsule 3 mg PO QPM 06/29/22 02/17/23 History ropinirole 0.5 mg tablet 1 mg PO QPM 06/29/22 02/17/23 History azelastine 137 mcg (0.1 %) nasal 2 spray intranasal BID 07/14/22 02/17/23 H istory spray aerosol umeclidinium 62.5 mcg-vilanterol 1 inh inhalation QAM 07/14/22 02/17/23 History 25 mcg/actuation powdr for inhalation (Anoro Ellipta) RIGHT WRIST BRACE #1 ea 11/02/22 01/20/23 Rx alprazolam 0.5 mg tablet (Xanax) 0.5 mg PO TID 12/20/22 02/17/23 History lamotrigine 25 mg tablet (Lamictal) 100 mg PO QPM 12/20/22 02/17/23 History omeprazole 40 mg capsule,delayed 40 mg PO BID #60 caps 12/26/22 02/17/23 Rx release rizatriptan 10 mg disintegrating 10 mg PO UD PRN migraines #14 tabs 01/03/23 02/17/23 Rx tablet (Maxalt-ARTIFICIAL FLY TIER) carisoprodol 350 mg tablet (Soma) 350 mg PO QID PRN muscle pain #120 02/06/23 02/17/23 Rx tabs peg 3350-electrolytes 236 240 ml PO .COMPLEX #4,000 mL 02/07/23 Rx gram-22.74 gram-6.74 gram-5.86 gram solution (Golytely) semaglutide 1 mg/dose (2 mg/1.5 1 mg (0.75 mL) subcut .weekly #3 mL 02/10/23 02/17/23 Rx mL) subcutaneous pen injector potassium chloride 8 mEq 8 meq PO DAILY #30 tabs 02/12/23 02/17/23 Rx tablet,extended release (Klor-Con) fenofibrate nanocrystallized 145 145 mg PO QPM 02/17/23 02/17/23 History mg tablet lumateperone 42 mg capsule 42 mg PO QAM 02/17/23 02/17/23 History (Caplyta) ondansetron HCl 4 mg tablet 4 mg PO Q8H PRN Nausea 02/17/23 02/17/23 History pravastatin 20 mg tablet 20 mg PO HS 02/17/23 02/17/23 History solifenacin 5 mg tablet 5 mg PO HS 02/17/23 02/17/23 History vibegron 75 mg tablet (Gemtesa) 75 mg PO QPM 02/17/23 02/17/23 History semaglutide 0.25 mg or 0.5 mg (2 0.5 mg (0.8 mL) subcut .weekly #3 02/24/23 Rx mg/3 mL) subcutaneous pen injector mL (Ozempic) Patient History Medical History Abdominal pain ADHD Stable Anxiety Stable Asthma well controlled Attention deficit disorder (ADD) Bipolar 2 disorder Cervical disc disease S/p cervical fusion- no limited ROM Cigarette smoker Complex regional pain syndrome left hand Diabetes mellitus, type 2 Hgb A1C 8.2 on 03/16/21 Fatty liver GERD (gastroesophageal reflux disease) Well controlled and stable Glaucoma Follows with eye doctor routinely History of anesthesia reaction nausea: needs zofran Hyperlipidemia IBS (irritable bowel syndrome) Insomnia (~04/09/21) Lumbar radiculopathy Spinal cord stimulator in place - educated to bring remote DOS Medical cannabis use vapes Migraine headache Morbid obesity Nasal septal deviation Nausea and vomiting after administration of anesthetic agent Obstructive sleep apnea, adult cpap nightly Peripheral neuropathy Post traumatic stress disorder Reaction, depressive, manic RLS (restless legs syndrome) Seasonal allergies Spinal cord stimulator status Trouble swallowing Vomiting Surgical History H/O section H/O hand surgery left hand surgery x6 for reconstruction and ligament/tendon repairs H/O umbilical hernia repair H/O vaginal hysterectomy with BSO History of adenoidectomy History of carpal tunnel release right History of colonoscopy History of esophagogastroduodenoscopy (EGD) History of nasal septoplasty History of nasal surgery inferior turbinate reduction History of repair of hiatal hernia History of uvulopalatopharyngoplasty History of vitrectomy bilateral Hx of umbilical hernia repair S/P cervical spinal fusion 2 levels with bone grafting. Full ROM. S/P epidural steroid injection S/P insertion of spinal cord stimulator Status post breast reduction Family History Mother Anxiety Depression Environmental allergies Asthma Allergies Sister Anxiety Depression Gallbladder disease Brother Anxiety Depression Tourette disorder Grandmother Cancer Diabetes Cardiac disorder Grandfather Cancer Diabetes Grandmother Colon cancer Father Cancer Diabetes Daughter Environmental allergies Asthma Sinus disorder Denies family history of Hearing loss No family history of adverse response to anesthesia No family history of bleeding disorder Heart disease Hypertension Stroke Social History Smoking Status: Never smoker Tobacco Type: Cigarettes Age Started Using Tobacco: 16; packs per day: 0.5; Cigarettes Per Day: 12 cigarrettes daily; Second Hand Exposure: No; Do You Dip or Chew Tobacco: No; Hx Alcohol Use: No Hx Substance Use: Yes (medical marijuana) Non-Prescribed Medications: Marijuana Substance Use Type Other:: medical marijuana use Preferred Language: Haitian Communication Ability: Effective Visual Impairment: Partially Limited Delivery Recruiter Required: No Beliefs That Will Affect Care: None marital status: Current Living Situation: Family Current Living Situation Comment: spouse and daughter current occupational status: disabled How many Children do You have: 2 Feels Safe at Home: Yes Childhood Exposure to Second-Hand Smoke: Yes Diet: diabetic caffeine: Yes (tea) during the past year weight has: decreased > 10 lbs Dental Care, Regularly: Yes Physical Activity Frequency: Does not Exercise Seatbelt Use: always Assistive Devices: None Review of Systems Review of Systems: All systems reviewed & are unremarkable except as noted in Subjective Physical Exam Physical Exam: General: A&Ox3. NAD. Cooperative. HEENT: Atraumatic, normocephalic. Pulm: CTAB A&P. -wheezes, -rales, -rhonchi. Symmetrical chest rise. No increased work of breathing. No respiratory distress. Cardiac: RRR, -mrg. Radial pulses intact and symmetrical. Abdominal: Diffuse mild tenderness in right upper and epigastric quadrants. Postop laparoscopic incisions are in place, closed with Dermabond. No dehiscence. No discharge. No rebound tenderness. Extremities: Warm, dry Results & Data Results & Data Vital Signs (Past 12 Hours) Vital Signs Temp Pulse Pulse Resp BP BP Pulse Ox 02/27/23 13:48 69 18 98 02/27/23 13:47 36.6 C 63 20 115/71 96 02/27/23 13:15 74 14 104/64 96 02/27/23 13:04 70 18 96 02/27/23 13:00 74 16 96/69 L 95 02/27/23 12:45 66 20 96 02/27/23 12:32 67 18 103/47 L 98 02/27/23 12:30 60 14 99 02/27/23 12:15 84 22 143/82 H 98 02/27/23 12:00 83 14 116/61 97 02/27/23 10:45 71 12 94 02/27/23 10:30 70 13 164/73 H 95 02/27/23 10:17 76 14 97 02/27/23 10:17 122/90 02/27/23 10:16 81 17 02/27/23 10:00 86 16 114/72 97 02/27/23 09:57 75 16 97 02/27/23 09:48 69 17 02/27/23 09:53 70 02/27/23 09:36 36.7 C 83 116/78 99 O2 Del Method 02/27/23 13:48 Room Air 02/27/23 13:47 Room Air 02/27/23 13:15 02/27/23 13:04 02/27/23 13:00 02/27/23 12:45 02/27/23 12:32 02/27/23 12:30 02/27/23 12:15 02/27/23 12:00 02/27/23 10:45 02/27/23 10:30 02/27/23 10:17 02/27/23 10:17 02/27/23 10:16 02/27/23 10:00 02/27/23 09:57 02/27/23 09:48 02/27/23 09:53 02/27/23 09:36 Room Air PG Care Time/CCT Total # of Minutes Spent Total Time Spent with Patient: Total time spent is greater than 50% in coordination of care (as documented) at patient's floor/unit and/or counseling patient: Coding Level of Care Code 11592 IN/OBS CONSULT LVL 4,60M Diagnoses Acute cholecystitis K81.0 BMI 40.0-44.9, adult Z68.41 Diabetes mellitus type II, controlled E11.9 COPD (chronic obstructive pulmonary disease) J44.9 GERD without esophagitis K21.9
[2023-02-27] MEDS ORDERED: ACETAMINOPHEN 1,000 MG/100 ML VIAL IV ONE (15:45)
[2023-02-27] MEDS ORDERED: oxyCODONE HCL IR 5 MG TAB (IMMEDIATE RELEASE) PO PRN ×2 (15:45→17:19)
--- NOTE | 2023-02-27 15:45 | Post Operative Brief Note ---
PG Immediate Post Op with CF Date of Surgery February 27, 2023 Pre & Post Diagnosis Operation Date: 02/27/23 12:40 Pre-Op Diagnosis: Acute Cholecystitis Post-Op Diagnosis: Acute Cholecystitis, chronic cholecystitis I identified the patient and participated in the time-out.: Yes Procedure Operation Date: 02/27/23 12:40 Actual Procedures p Laparoscopic Cholecystectomy(Not Applicable) - Hai Chowdhury MD, FACS Surgeon Hai Chowdhury MD, FACS Hydro Generation Manager nicanor ríos Estimated Blood Loss 5 Findings Consistent with Post-Op Diagnosis Acute edema and chronic scar tissue in the scott hepatis Specimens Specimen Description: A. Gallbladder and Contents
--- NOTE | 2023-02-27 15:53 | Operative Report ---
PG Post Operative Report Pre & Post Diagnosis Operation Date: 02/27/23 12:40 Pre-Op Diagnosis: Acute Cholecystitis Post-Op Diagnosis: Acute Cholecystitis I identified the patient and participated in the time-out.: Yes Procedure Operation Date: 02/27/23 12:40 Actual Procedures p Laparoscopic Cholecystectomy(Not Applicable) - Hai Chowdhury MD, FACS Surgeon Hai Chowdhury MD, FACS Emergency Medical Service Manager [email or web address] [email or web address] Estimated Blood Loss 5 Findings Consistent with Post-Op Diagnosis Specimens Gallbladder Description of Procedure Patient brought in the operating room placed on the operating room table in the supine position Pneumatic stockings and orogastric tube were placed after appropriate anesthetic Her abdomen was prepped and draped in usual fashion My assistant prosecuting attorney help with prepping draping remove the gallbladder and closure of the wounds Half percent plain Marcaine was used to anesthetize all incisions Incision was made above the umbilicus carried dissection down to the fascia placing a varies needle producing pneumoperitoneum 11 mm port placed at this level, three 5 mm ports placed under visualization 1 cephalad and 2 laterally Gallbladder was retracted and aspirated of bile Dissection carried out the scott hepatis carried dissection through scar tissue consistent with chronic inflammation Patient also had acute edema Cystic duct and cystic artery were identified clipped and transected Gallbladder dissected away from the liver bed in the usual fashion, it was placed into an Endobag After irrigation hemostasis the Endobag was removed through the umbilical site All ports were removed-fascia at the umbilicus closed using 0 Vicryl suture, skin reapproximated using subcuticular 4-0 Monocryl And Dermabond Patient transferred to recovery room in stable condition I attest to the content of the Intraoperative Record and any orders documented therein. Any exceptions are noted below.
[2023-02-27] MEDS ORDERED: SUGAMMADEX SODIUM 200 MG/2 ML VIAL IV ONE (15:58)
[2023-02-27] MEDS ORDERED: PROMETHAZINE HCL 6.25 MG in SODIUM CHLORIDE 0.9% 50 ML IV STA (16:09)
[2023-02-27] MEDS ORDERED: ACETAMINOPHEN 1000 MG/100 ML IV IV ONE (16:09)
[2023-02-27] MEDS: fentaNYL citrate PF 100 MCG/2 ML VIAL IV PRN ×3 (16:28→16:38)
[2023-02-27] MEDS ORDERED: IBUPROFEN 600 MG TAB PO PRN (17:19)
[2023-02-27] MEDS ORDERED: ACETAMINOPHEN 325 MG TAB PO PRN (17:19)
[2023-02-27] MEDS ORDERED: HYDROmorphone INJ 0.5 MG/0.5 ML SYR IV PRN (17:19)
[2023-02-27] MEDS ORDERED: SODIUM CHLORIDE 0.9% 1000ML 1,000 ML IV SCH (17:19)
[2023-02-27] MEDS ORDERED: PROMETHAZINE HCL 12.5 MG in SODIUM CHLORIDE 0.9% 50 ML IV PRN (17:19)
--- NOTE | 2023-02-27 17:27 | Anesthesiology Progress Note ---
Date of Service February 27, 2023 Anesthesia Post Procedure Vital Signs Vital Signs: Temp Pulse Pulse Resp BP BP Pulse Ox 02/27/23 17:00 36.5 C 62 15 103/51 L 97 02/27/23 16:50 58 L 18 102/60 100 02/27/23 16:40 57 L 14 104/49 L 100 02/27/23 16:30 59 L 16 87/50 L 100 02/27/23 16:20 74 24 96/67 L 100 02/27/23 16:10 72 18 98/67 L 100 02/27/23 16:04 36.3 C L 75 21 106/72 100 02/27/23 13:48 69 18 98 02/27/23 13:47 36.6 C 63 20 115/71 96 02/27/23 13:15 74 14 104/64 96 02/27/23 13:04 70 18 96 02/27/23 13:00 74 16 96/69 L 95 02/27/23 12:45 66 20 96 02/27/23 12:32 67 18 103/47 L 98 02/27/23 12:30 60 14 99 02/27/23 12:15 84 22 143/82 H 98 02/27/23 12:00 83 14 116/61 97 02/27/23 10:45 71 12 94 02/27/23 10:30 70 13 164/73 H 95 02/27/23 10:17 76 14 97 02/27/23 10:17 122/90 02/27/23 10:16 81 17 02/27/23 10:00 86 16 114/72 97 02/27/23 09:57 75 16 97 02/27/23 09:48 69 17 02/27/23 09:53 70 02/27/23 09:36 36.7 C 83 116/78 99 O2 Del Method O2 Flow Rate 02/27/23 17:00 Nasal Cannula 2 02/27/23 16:50 Nasal Cannula 2 02/27/23 16:40 Nasal Cannula 2 02/27/23 16:30 Nasal Cannula 2 02/27/23 16:20 Nasal Cannula 2 02/27/23 16:10 Nasal Cannula 2 02/27/23 16:04 Oxymask 6 02/27/23 13:48 Room Air 02/27/23 13:47 Room Air 02/27/23 13:15 02/27/23 13:04 02/27/23 13:00 02/27/23 12:45 02/27/23 12:32 02/27/23 12:30 02/27/23 12:15 02/27/23 12:00 02/27/23 10:45 02/27/23 10:30 02/27/23 10:17 02/27/23 10:17 02/27/23 10:16 02/27/23 10:00 02/27/23 09:57 02/27/23 09:48 02/27/23 09:53 02/27/23 09:36 Room Air Pain Intensity Chest: Pain Intensity: 5 Abdomen: Pain Intensity: 9 Transfer of Care Handoff Completed per policy Notes Mental Status: alert / awake / arousable and participated in evaluation Patient Amnestic to Procedure: Yes Nausea / Vomiting: adequately controlled Pain: improving with treatment Airway Patency, RR, SpO2: stable & adequate BP & HR: stable & adequate Hydration State: stable & adequate Anesthetic Complications: no major complications apparent and Pt Satisfied with anesthetic care
[2023-02-27] MEDS ORDERED: ALBUTEROL HFA 8 GM INHALER INH SCH ×2 (18:00→19:00)
[2023-02-27] MEDS: HYDROmorphone INJ 0.5 MG/0.5 ML SYR IV PRN ×2 (18:01→21:52)
[2023-02-27] MEDS ORDERED: LACTATED RINGER'S 1,000 ML IV SCH (18:15)
[2023-02-27] MEDS ORDERED: ALBUTEROL HFA 8 GM INHALER INH PRN (20:49)
[2023-02-27] MEDS ORDERED: PRAZOSIN HCL 1 MG CAP PO SCH (21:00)
[2023-02-27] MEDS ORDERED: PANTOprazole 40 MG TAB PO SCH (21:00)
[2023-02-27] MEDS ORDERED: PRAVASTATIN SOD 20 MG TAB PO SCH (21:00)
[2023-02-27] MEDS ORDERED: rOPINIRole HCL 1 MG TABLET PO SCH (21:00)
[2023-02-27] MEDS ORDERED: VIBEGRON 75 MG TAB PO SCH (21:00)
[2023-02-27] MEDS ORDERED: lamoTRIgine 100 MG TAB PO SCH (21:00)
[2023-02-27] MEDS ORDERED: MONTELUKAST SODIUM 10 MG TABLET PO SCH (21:00)
[2023-02-27] MEDS ORDERED: SENNOSIDES 8.8 MG/5 ML UDC PO SCH (21:00)
[2023-02-27] MEDS ORDERED: NON-FORMULARY PATIENT'S OWN MED SCH (21:45)
[2023-02-27] MEDS: ONDANSETRON INJ 2 MG/ML 2 ML VIAL IV PRN (21:53)
[2023-02-27] MEDS ORDERED: [UNRECOGNIZED DRUG - OTHER] SCH (22:00)
[2023-02-27] MEDS: ALPRAZolam 0.5 MG TABLET PO SCH (22:07)
[2023-02-27] MEDS ORDERED: Nursing to Pharmacy Communication SCH (22:30)
[2023-02-27] MEDS ORDERED: CAPLYTA SCH (22:45)
[2023-02-28] MEDS: HYDROmorphone INJ 0.5 MG/0.5 ML SYR IV PRN ×2 (01:40→04:29)
[2023-02-28] MEDS: ONDANSETRON INJ 2 MG/ML 2 ML VIAL IV PRN (04:29)
[2023-02-28] MEDS: ALPRAZolam 0.5 MG TABLET PO SCH (05:28)
--- NOTE | 2023-02-28 06:37 | Surgery Progress Note ---
Date of Service February 28, 2023 Assessment & Plan (1) S/P laparoscopic cholecystectomy: Plan: Patient is stable She did take some IV pain medication She wishes to go home We will discharge later this a.m. Admission and Anticipated Discharge Date Admission Date: February 27, 2023 Results & Data Vital Signs (Past 12 Hours) Vital Signs Temp Pulse Resp BP Pulse Ox O2 Del Method 02/28/23 02:23 36.6 C 74 18 92/60 L 97 Room Air 02/27/23 20:30 Room Air 02/27/23 20:30 36.8 C 76 18 109/60 96 Room Air 02/27/23 20:00 66 17 98 Room Air 02/27/23 19:10 36.6 C 69 17 125/71 99 Room Air PG Care Time/CCT Total # of Minutes Spent Total Time Spent with Patient: Total time spent is greater than 50% in coordination of care (as documented) at patient's floor/unit and/or counseling patient: Coding Level of Care Code 77677 Post Operative Follow-Up Diagnoses S/P laparoscopic cholecystectomy Z90.49
--- NOTE | 2023-02-28 08:48 | Electrocardiogram Report ---
Test Reason : Blood Pressure : / mmHG Vent. Rate : 072 BPM Atrial Rate : 072 BPM P-R Int : 158 ms QRS Dur : 082 ms QT Int : 394 ms P-R-T Axes : 057 036 036 degrees QTc Int : 431 ms Normal sinus rhythm with sinus arrhythmia Normal ECG When compared with ECG of 25-FEB-2023 11:32, No significant change was found Confirmed by Felix Rodriguez ([id number]) on 02/28/2023 8:48:19 AM Referred By: REFERRED SELF Confirmed By:Felix Rodriguez
[2023-02-28] MEDS ORDERED: POTASSIUM CHLORIDE 10 MEQ TABCR PO SCH (09:00)
[2023-02-28] MEDS ORDERED: CAPLYTA SCH (09:00)
[2023-02-28] MEDS ORDERED: UMECLIDINIUM/VILANTEROL 62.5/25MCG 7 PUFFS/INHALER INH SCH (09:00)
[2023-02-28] MEDS ORDERED: PANTOprazole 40 MG TAB PO SCH (09:00)
[2023-02-28] MEDS ORDERED: FENOFIBRATE NANOCRYSTALLIZED 145 MG TABLET PO SCH (09:00)
[2023-02-28] MEDS ORDERED: HEPARIN SOD 5,000 UNIT/0.5 ML VIAL SQ SCH (09:00)
--- NOTE | 2023-03-01 07:57 | Discharge Summary ---
Date of Service March 01, 2023 Admission HPI Per Admitting Provider Patient was seen in the emergency room with acute abdominal pain This was her second ER visit within 48 to 72 hours She underwent ultrasound showing thickened gallbladder with distention consistent with acute cholecystitis Principal Diagnosis Acute cholecystitis Discharge Exam Patient in mild distress from abdominal pain She does have some tenderness in right upper quadrant Discharge Data Allergies Allergy/AdvReac Type Severity Reaction Status Date / Time bupropion Allergy Intermediate HIVES Verified 02/27/23 13:58 escitalopram Allergy Intermediate HIVES Verified 02/27/23 13:58 grass pollen Allergy Intermediate sinus Verified 02/27/23 13:58 congestion house dust mite Allergy Intermediate sinus Verified 02/27/23 13:58 congestion Corticosteroids AdvReac Severe GLACOMA Verified 02/27/23 13:58 (Glucocorticoids) clarithromycin AdvReac Mild GI UPSET Verified 02/27/23 13:58 topiramate AdvReac Mild INDUCED Verified 02/27/23 13:58 GLAUCOMA Consultations 02/27/23 11:49 ED Decision to Admit Stat 02/27/23 14:48 Consult Hospitalist Routine Procedures Performed Operation Date: 02/27/23 12:40 Actual Procedures p Laparoscopic Cholecystectomy(Not Applicable) - Hai Chowdhury MD, FACS Ordered Studies 02/27/23 10:18 US gallbladder Stat Hospital Course (1) S/P laparoscopic cholecystectomy: Plan Patient was taken from the emergency room to the operating room where she underwent laparoscopic cholecystectomy She did well with the operation and was stable overnight She was felt stable for discharge home the next day Total Time Total Time Spent Total Time Spent (In Minutes): 15 minutes Discharge Plan Discharge Items Patient Disposition: Home - Self-Care Reason For Visit: POSTOP Discharge Diagnosis: Acute and chronic cholecystitis Activity: As commented below Activity Comment: Light activity for 3 weeks Lifting: No more than 10 pounds Bathing Comment: May shower Sexual Activity: When tolerated Exercise Comment: Weight 3 weeks Driving/Machine Use: Resume 3 days after discharge Non-emergency contact: Primary Care Provider and Surgeon Call non-emergency contact if: your pain is not controlled, your temperature is above 101 and your wound has increased drainage Follow-up/Referrals: Hai Chowdhury MD, FACS [Physician] - 03/06/23 9:15 am Luís Paul DO [Primary Care Provider] - Diet: Regular Addtl Attending Provider Instructions: SPECIAL CARE INSTRUCTIONS: * Cover incisions and change daily for comfort/drainage. May leave uncovered with Dermabond * * Avoid constipation- * May Use Senokot S and Milk of Magnesium twice daily as directed on the package * May use ibuprofen for pain as tolerated. * Expect some swelling and bruising. Call your doctor if: * Temperature above 101 degrees * Pain not relieved by pain medicine ordered * There is increased drainage or redness from any incision * You have any unanswered questions or concerns [phone]. FOLLOW UP VISIT: If not already scheduled, please call the office for a follow-up visit. For 2 weeksno sutures to remove OFFICE PHONE NUMBER: Dr. Chowdhury Office Pending Studies at Discharge: No Stand-Alone Forms: [facility], Smoking Cessation Medications and DC Order Prescriptions: New oxycodone 5 mg tablet 5 - 10 mg PO Q6H PRN (Reason: pain) Qty: 30 0RF ondansetron HCl 4 mg tablet 4 mg PO Q6H PRN (Reason: nausea and vomiting) Qty: 20 0RF Continued (DME) lancets Misc See Rx Instructions .ROUTE .MEDSUPPLY Qty: 100 5RF Rx Instructions: MICROLET lancets, check once daily As directed DX:E11.9 (DME) blood sugar diagnostic Strip See Rx Instructions .ROUTE .MEDSUPPLY Qty: 100 5RF Rx Instructions: Contour test strips,check once daily As directedDX:E11.9 (DME) FreeStyle Maite 2 Sensor Kit See Rx Instructions .Route Qty: 1 0RF Rx Instructions: As directed DX:E11.9 levocetirizine [Xyzal] 5 mg tablet 5 mg PO QAM Qty: 90 3RF montelukast [Singulair] 10 mg tablet 10 mg PO QPM Qty: 90 3RF albuterol sulfate 2.5 mg /3 mL (0.083 %) solution for nebulization 2.5 mg inhalation Q6H PRN (Reason: sob) Qty: 75 0RF albuterol sulfate 90 mcg/actuation HFA aerosol inhaler 2 puff inhalation Q4H PRN (Reason: shortness of breath or wheezing) Qty: 18 3RF rizatriptan [Maxalt-[employer]] 10 mg tablet,disintegrating 10 mg PO UD PRN (Reason: migraines) Qty: 14 3RF Rx Instructions: take 1 tab at onset of headache; if no relief may repeat 1 tab after at least 2 hrs; max = 2 tabs/24 hr PO carisoprodol [Soma] 350 mg tablet 350 mg PO QID PRN (Reason: muscle pain) Qty: 120 0RF Rx Instructions: approved, effective 02/15/21 peg 3350-electrolytes [Golytely] 236-22.74-6.74 -5.86 gram recon soln 240 ml PO .COMPLEX Qty: 4000 0RF Rx Instructions: 240 mL PO take as directed per split dose instructions semaglutide 1 mg/dose (2 mg/1.5 mL) pen injector 1 mg subcut .weekly Qty: 3 0RF potassium chloride [Klor-Con 8] 8 mEq tablet extended release 8 meq PO DAILY Qty: 30 2RF Ozempic 0.25 mg or 0.5 mg (2 mg/3 mL) pen injector 0.5 mg subcut .weekly Qty: 3 0RF azelastine 137 mcg (0.1 %) aerosol,spray 2 spray intranasal BID Rx Instructions: administer into each nostril Anoro Ellipta 62.5-25 mcg/actuation blister with device 1 inh inhalation QAM ([facility]) nebulizer accessories Kit See Rx Instructions .ROUTE .MEDSUPPLY Qty: 1 0RF Rx Instructions: As directed ([facility]) nebulizers [facility] [place] See Rx Instructions .ROUTE .MEDSUPPLY Qty: 1 0RF Rx Instructions: As directed Dayvigo 10 mg tablet 10 mg PO HS prazosin 1 mg capsule 3 mg PO QPM (DME) RIGHT WRIST BRACE See Rx Instructions .Route .MEDSUPPLY Qty: 1 0RF Rx Instructions: As directed omeprazole 40 mg capsule,delayed release(DR/EC) 40 mg PO BID Qty: 60 5RF lamotrigine [Lamictal] 25 mg tablet 100 mg PO QPM ropinirole 0.5 mg tablet 1 mg PO QPM Rx Instructions: 1 in pm PO daily in the evening; alprazolam [Xanax] 0.5 mg tablet 0.5 mg PO TID ondansetron HCl 4 mg tablet 4 mg PO Q8H PRN (Reason: Nausea) pravastatin 20 mg tablet 20 mg PO HS solifenacin 5 mg tablet 5 mg PO HS fenofibrate nanocrystallized 145 mg tablet 145 mg PO QPM Caplyta 42 mg capsule 42 mg PO QAM Gemtesa 75 mg tablet 75 mg PO QPM Discharge Orders: Discharge Order (Routine); Ordered 02/28/23 Ordered By: Hai Ovalle/Other Patient Handouts: Cholecystectomy Admission Data Admit Date/Time: 02/27/23 15:46 Attending Provider: Hai Chowdhury Admit Provider: Hai Chowdhury Primary Care Provider: Luís Paul Other Providers: Hai Chowdhury ; Mariano Calle ; Ema Avendano ; Gildardo Dong ; Hai Valerio ; Michele Padilla ; Maxim Whipple ; Gabe Kahn ; Oralia Sykes ; Agnieszka Leon ; Jose Elias ; Karen Joseph ; Jhon Helm ; Alexandria Chun ; Billy Bowen ; Serg Rhodes ; Jhoana Chaparro ; Ema Lux ; Julieta Horton ; Sam Silveira ; Gildardo Aaron ; Omayra Villarreal ; Javed Buck ; Richelle Mack ; Israel Storey ; Lauro Joiner ; Morenita Whitlock ; Balta Durand ; Varun Cowan ; Ivana Lou ; Allison Flynn ; Hai Wright ; Michele Raza Other Interventions: Discharge Summary Assessment (RN) Last Done: 02/28/23 09:46 Coding Level of Care Code 86972 IN/OBS DISCH 30 MIN/LESS Diagnoses S/P laparoscopic cholecystectomy Z90.49
== END 2023-02-28 10:18 | disposition home or self-care (01) ==
LOC: 3N 09:31 → ED 09:31 → 3N 02-28 13:48